=== PATIENT | female | born 1930 | race Caucasian/White ===

== ENCOUNTER 2016-10-10 20:05 | Emergency (ER) | payer MEDICARE ==
[~2016-10-10] VITALS: Ht 157.5 cm; Wt 62.6 kg
[~2016-10-10 20:05] MED LIST: ACET-168 PO; ACET325T38 PO; ASPI-999 PO; CITA10TA7 PO; CLOP75TA28 PO; FLUO40CR8 TP; IBUP200C75 PO; METO-270 PO; PANT40TA3 PO; PSEU120T53 PO; SIMV10TA3 PO; SUCR1TAB PO
--- OUTSIDE RECORDS SUMMARY | 2016-10-10 20:09 | XMS REPORT | Continuity of Care Document ---
Author Author [facility] Organization [facility] Address Unknown Phone Unavailable Care Team Providers Care Adjunct Faculty Name Role Phone TAMIE MICHELLE MD PCP Insurance Providers Payer Name Policy Number Subscriber Name Relationship Wps Medicare [id number] Zenobia Sr 18 Self / Same As Patient Blue Cross [facility] Supp [id number] Zenobia Sr 18 Self / Same As Patient Advance Directives Directive Response Recorded Date/Time Advance Directives Yes 07/06/16 7:25am Health Care Power of Person Investigator Yes 07/06/16 7:25am Organ Donor Yes 07/06/16 7:25am Resuscitation Status DNR-Pt Request 07/06/16 7:25am Chief Complaint and Reason for Visit Chief Complaint Cough/Cold/Flu Symptoms Reason for Visit Upper respiratory infection Problems Active Problems Medical Problem Onset Date Status Nausea Unknown Acute Non-ST elevated myocardial infarction Unknown Acute Pleural effusion Unknown Acute Upper respiratory infection Unknown Acute Medications Current Home Medications Medication Dose Units Route Directions Days/Qty Instructions Start Date Fluorouracil 40 Gm Topical Daily as needed for Rash 09/29/15 Acetaminophen 500 Mg 500 Mg Oral Daily as needed for Brenden 09/29/15 Clopidogrel Bisulfate 75 Mg 75 Mg Oral Daily 90 10/05/15 Simvastatin 10 Mg 10 Mg Oral Bedtime 90 10/05/15 Metoprolol Succinate 25 Mg 25 Mg Oral Daily 90 10/05/15 Aspirin 81 Mg 81 Mg Oral Daily@0900 90 10/05/15 Citalopram Hydrobromide 10 Mg 10 Mg Oral Daily 30 10/05/15 Sucralfate 1 Gm 1 Gm Oral Before Meals And At Bedtime 90 10/05/15 Pantoprazole Sodium 40 Mg 40 Mg Oral Daily@0700 90 10/05/15 Pseudoephedrine Hcl 120 Mg 120 Mg Oral Twice Daily And Prn as needed for Congestion 30 07/06/16 Past Home Medications Medication Directions Ordered Status Acetaminophen 325 Mg Tablet, 325 Mg Oral 09/28/15 Discontinued Ibuprofen 200 Mg Capsule, 200 Mg Oral Daily as needed for Pain 09/28/15 Discontinued Pantoprazole Sodium 40 Mg Tablet.dr, 40 Mg Oral Daily as needed for Heartburn 09/29/15 Discontinued Social History Social History Problem Response Recorded Date/Time Alcohol Use Denies Use 09/29/2015 1:39am Recreational Drug Use No 09/29/2015 1:39am Recent Foreign Travel No 07/06/2016 7:20am Recent Infectious Disease Exposure No 07/06/2016 7:20am Hospitalization with Isolation Denies 07/06/2016 7:20am Smoking Status Never a Smoker 07/06/2016 7:25am Do you dip or chew tobacco? No 10/01/2015 9:33am Recent Hopitalizations No 07/06/2016 7:25am Hospitalization with Isolation Denies 07/06/2016 7:20am Query Response Start Date Stop Date Smoking Status Never a Smoker Hospital Discharge Instructions No hospital discharge instructions. Plan of Care Discharge Date 07/06/16 9:12am Disposition 01 HOME, SELF-CARE Condition at Discharge Stable/Unchanged Instructions/Education Provided Viral Upper Respiratory Infection, Adult (DC) Prescriptions See Medication Section Referrals TAMIE MICHELLE MD - Primary Care Physician Additional Instructions/Education All discharge instructions reviewed with patient and/or family. Voiced understanding. Plenty of rest and liquids. Sudafed for congestion Functional Status No functional status results. Allergies, Adverse Reactions, Alerts Allergen Type Severity Reaction Status Last Updated Penicillins ([id number]) Allergy Unknown Active 09/29/15 Immunizations No immunization records. Vital Signs Acute Vital Signs Vital Response Date/Time Temperature (Fahrenheit) 97.6 degrees F (97.6 - 99.5) 07/06/2016 7:20am Temperature (Calculated Celsius) 36.29420 degrees C (36.4 - 37.5) 07/06/2016 7:20am Temperature Source Temporal 07/06/2016 7:20am Pulse Rate (adult) 68 bpm (60 - 90) 07/06/2016 7:20am Respiratory Rate 18 bpm (12 - 24) 07/06/2016 7:20am O2 Sat by Pulse Oximetry 93 % (88 - 100) 07/06/2016 7:20am Blood Pressure 164/76 mm Hg 07/06/2016 7:20am Blood Pressure Mean 105 mm Hg 07/06/2016 7:20am Pain Numeric Pain Scale 5-Moderate Pain 07/06/2016 7:20am Height (Feet) 5 feet 07/06/2016 7:20am Height (Inches) 3 inches 07/06/2016 7:20am Height (Calculated Centimeters) 160.752138 cm 07/06/2016 7:20am Weight (Pounds) 135 pounds 07/06/2016 7:20am Weight (Calculated Kilograms) 61.726616 kilograms 07/06/2016 7:20am Capillary Refill Capillary Refill Less Than 3 Seconds 07/06/2016 7:20am Height 5 ft 3 in Weight 135 lb Body Mass Index 23.9 kg/m^2 Results Laboratory Results Test Name Result Units Flags Reference Collection Date/Time Result Date/ Time Comments White Blood Count 8.1 10^3/uL 4.3-11.0 07/06/2016 7:47am 07/06/2016 7: 53am Red Blood Count 4.69 10^6/uL 4.35-5.85 07/06/2016 7:47am 07/06/2016 7: 53am Hemoglobin 13.9 G/DL 11.5-16.0 07/06/2016 7:47am 07/06/2016 7:53am Hematocrit 42 % 35-52 07/06/2016 7:47am 07/06/2016 7:53am Mean Corpuscular Volume 90 FL 80-99 07/06/2016 7:47am 07/06/2016 7: 53am Mean Corpuscular Hemoglobin 30 PG 25-34 07/06/2016 7:47am 07/06/2016 7: 53am Mean Corpuscular Hemoglobin Concent 33 G/DL 32-36 07/06/2016 7:47am 05/2016 7:53am Red Cell Distribution Width 13.2 % 10.0-14.5 07/06/2016 7:47am 2015 7:53am Platelet Count 256 10^3/uL 130-400 07/06/2016 7:47am 07/06/2016 7:53am Mean Platelet Volume 12.1 FL H 7.4-10.4 07/06/2016 7:47am 07/06/2016 7: 53am Neutrophils (%) (Auto) 67 % 42-75 07/06/2016 7:47am 07/06/2016 7:53am Lymphocytes (%) (Auto) 21 % 12-44 07/06/2016 7:47am 07/06/2016 7:53am Monocytes (%) (Auto) 8 % 0-12 07/06/2016 7:47am 07/06/2016 7:53am Eosinophils (%) (Auto) 2 % 0-10 07/06/2016 7:47am 07/06/2016 7:53am Basophils (%) (Auto) 1 % 0-10 07/06/2016 7:47am 07/06/2016 7:53am Neutrophils # (Auto) 5.5 X 10^3 1.8-7.8 07/06/2016 7:47am 07/06/2016 7: 53am Lymphocytes # (Auto) 1.7 X 10^3 1.0-4.0 07/06/2016 7:47am 07/06/2016 7: 53am Monocytes # (Auto) 0.6 X 10^3 0.0-1.0 07/06/2016 7:47am 07/06/2016 7: 53am Eosinophils # (Auto) 0.2 10^3/uL 0.0-0.3 07/06/2016 7:47am 07/06/2016 7 :53am Basophils # (Auto) 0.1 10^3/uL 0.0-0.1 07/06/2016 7:47am 07/06/2016 7: 53am Sodium Level 139 MMOL/L 135-145 07/06/2016 7:47am 07/06/2016 8:19am Potassium Level 4.7 MMOL/L 3.6-5.0 07/06/2016 7:47am 07/06/2016 8:19am Chloride Level 103 MMOL/L 98-107 07/06/2016 7:47am 07/06/2016 8:19am Carbon Dioxide Level 24 MMOL/L 21-32 07/06/2016 7:47am 07/06/2016 8: 19am Anion Gap 12 MMOL/L 5-14 07/06/2016 7:47am 07/06/2016 8:19am Blood Urea Nitrogen 22 MG/DL H 7-18 07/06/2016 7:47am 07/06/2016 8:19am Creatinine 1.03 MG/DL 0.60-1.30 07/06/2016 7:47am 07/06/2016 8:19am BUN/Creatinine Ratio 21 07/06/2016 7:47am 07/06/2016 8:19am Estimat Glomerular Filtration Rate 51 07/06/2016 7:47am 07/06/2016 8:19am GFR INTERPRETIVE DATA UNITS FOR ESTIMATED GFR (eGFR): mL/min/1.73 M2 REFERENCE RANGE FOR ESTIMATED GFR (eGFR) eGFR NORMAL eGFR >60 MODERATELY DECREASED eGFR 30-59 SEVERLY DECREASED eGFR 15-29 KIDNEY FAILURE <15 (OR DIALYSIS) Glucose Level 106 MG/DL H 70-105 07/06/2016 7:47am 07/06/2016 8:19am Calcium Level 10.2 MG/DL H 8.5-10.1 07/06/2016 7:47am 07/06/2016 8:19am Total Bilirubin 0.6 MG/DL 0.1-1.0 07/06/2016 7:47am 07/06/2016 8:19am Alkaline Phosphatase 58 U/L 40-136 07/06/2016 7:47am 07/06/2016 8:19am Aspartate Amino Transf (AST/SGOT) 27 U/L 5-34 07/06/2016 7:47am 2015 8:19am Alanine Aminotransferase (ALT/SGPT) 14 U/L 0-55 07/06/2016 7:47am 07/06 8:19am Troponin I < 0.30 NG/ML <0.30 07/06/2016 7:47am 07/06/2016 8:22am Total Protein 7.7 G/DL 6.4-8.2 07/06/2016 7:47am 07/06/2016 8:19am Albumin 4.4 G/DL 3.2-4.5 07/06/2016 7:47am 07/06/2016 8:19am Procedures Procedure Status Date Provider(s) Tracing only of electrocardiogram Active 07/06/16 KAREN PIERSON MD Encounters Encounter Location Arrival/Admit Date Discharge/Depart Date Attending Provider Departed Emergency Room [facility] 07/06/16 7:19am 07/06 9:12am KAREN PIERSON MD Recent Diagnosis
--- NOTE | 2016-10-10 20:18 | ED Chest Pain ---
General Chief Complaint: Chest Pain Stated Complaint: CP Source: patient, RN notes reviewed Exam Limitations: no limitations History of Present Illness Time seen by provider: 20:17 Initial Comments As above and below. Left sided C.P. started around 14:00 while shopping. Continued upon return home. Finally resolved in chest but remains in LUE (10/06) . Apparently had similar arm pain a year ago when she had her [place], so it is making her a little nervous. Nothing makes it better or worse. No associated N /V, SOA, or diaphoresis. Told she better come in and get checked. 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 po LEAD C DEVELOPER: Yes NTG SL LEAD C DEVELOPER: No Associated Symptoms: No diaphoresis, heartburn (???)No nausea/vomiting, No shortness of breath Allergies and Home Medications Allergies Coded Allergies: Penicillins (Unverified Allergy, Unknown, 09/29/15) Home Medications Acetaminophen 500 Mg Tablet 500 MG PO DAILY PRN PRN PRO (Reported) Aspirin 81 Mg Tab.chew #90 81 MG PO DAILY@0900 Prescribed by: YOHAN ORTEGA on 10/05/15 1033 Clopidogrel Bisulfate 75 Mg Tablet #90 75 MG PO DAILY Prescribed by: YOHAN ORTEGA on 10/05/15 1033 Metoprolol Succinate 25 Mg Tab.er.24h #90 25 MG PO DAILY Prescribed by: YOHAN ORTEGA on 10/05/15 1033 Pantoprazole Sodium 40 Mg Tablet.dr #90 40 MG PO DAILY@0700 Prescribed by: YOHAN ORTEGA on 10/05/15 1033 Simvastatin 10 Mg Tablet #90 10 MG PO HS Prescribed by: YOHAN ORTEGA on 10/05/15 1033 Review of Systems Constitutional: see HPINo diaphoresis, No dizziness, No fever Respiratory: Denies Shortness of Air, Denies SOA With Exertion, Denies SOA at Rest Cardiovascular: See HPI Chest Pain Gastrointestinal: Denies Nausea, Denies Vomiting Musculoskeletal: No back pain All Other Systems Reviewed Negative Unless Noted: Yes (Negative excepted noted.) Past Prueula-Rrkuue-Vtnqnb Hx Patient Social History 2nd Hand Smoke Exposure: No Recent Hopitalizations: No Immunizations Up To Date Date of Pneumonia Vaccine: Sep 29, 2013 Date of Influenza Vaccine: May 27, 2015 Seasonal Allergies Seasonal Allergies: No Surgeries HX Surgeries: Yes Surgeries: Adenoidectomy, Ear Surgery, Eye Surgery, Tonsillectomy Respiratory Hx Respiratory Disorders: No Cardiovascular Hx Cardiac Disorders: Yes (stent) Cardiac Disorders: Heart Attack, Hypertension Neurological Hx Neurological Disorders: No Genitourinary Hx Genitourinary Disorders: No Gastrointestinal Hx Gastrointestinal Disorders: No Musculoskeletal Hx Musculoskeletal Disorders: Yes (sciatica) Endocrine Hx Endocrine Disorders: No HEENT HX ENT Disorders: Yes HEENT Disorders: Cataract 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, Hearing Aide Right, Deaf Cancer Hx Cancer: No Psychosocial Hx Psychiatric Problems: Yes (RECENT OF SPOUSE) Behavioral Health Disorders: Depression Family Medical History Significant Family History: Cancer, Hypertension Physical Exam Vital Signs Vital Sign - Last 12Hours 10/10/16 20:05 Temp 98.0 Pulse 79 Resp 20 B/P 183/116 Pulse Ox 96 O2 Delivery Room Air O2 Flow Rate 2 Capillary Refill : Less Than 3 Seconds General Appearance: No Apparent Distress WD/WN HEENT: Normal ENT Inspection Neck: Supple Respiratory: Lungs Clear No Respiratory Distress Cardiovascular: Regular Rate, Rhythm Gastrointestinal: Non Tender Soft Rectal: Deferred Neurologic/Psychiatric: Alert Oriented x3 No Motor/Sensory Deficits Normal Mood/Affect Other ((+) [place]) Skin: Warm/Dry Progress/Results/Core Measures Results/Orders Lab Results Laboratory Tests Test 10/10/16 20:10 Range/Units Alanine Aminotransferase (ALT/SGPT) 11 0-55 U/L Albumin 4.1 3.2-4.5 G/DL Alkaline Phosphatase 63 40-136 U/L Anion Gap 12 5-14 MMOL/L Aspartate Amino Transf (AST/SGOT) 21 5-34 U/L B-Type Natriuretic Peptide 151.7 H <100.0 PG/ML BUN/Creatinine Ratio 27 Basophils # (Auto) 0.1 0.0-0.1 10^3/uL Basophils (%) (Auto) 2 0-10 % Blood Urea Nitrogen 26 H 7-18 MG/DL Calcium Level 9.3 8.5-10.1 MG/DL Carbon Dioxide Level 23 21-32 MMOL/L Chloride Level 102 98-107 MMOL/L Creatinine 0.97 0.60-1.30 MG/DL Eosinophils # (Auto) 0.2 0.0-0.3 10^3/uL Eosinophils (%) (Auto) 3 0-10 % Estimat Glomerular Filtration Rate 54 Glucose Level 108 H 70-105 MG/DL Hematocrit 38 35-52 % Hemoglobin 12.9 11.5-16.0 G/DL Lipase 20 8-78 U/L Lymphocytes # (Auto) 2.4 1.0-4.0 X 10^3 Lymphocytes (%) (Auto) 30 12-44 % Magnesium Level 1.9 1.8-2.4 MG/DL Mean Corpuscular Hemoglobin 30 25-34 PG Mean Corpuscular Hemoglobin Concent 34 32-36 G/DL Mean Corpuscular Volume 89 80-99 FL Mean Platelet Volume 12.3 H 7.4-10.4 FL Monocytes # (Auto) 0.7 0.0-1.0 X 10^3 Monocytes (%) (Auto) 9 0-12 % Neutrophils # (Auto) 4.6 1.8-7.8 X 10^3 Neutrophils (%) (Auto) 57 42-75 % Platelet Count 195 130-400 10^3/uL Potassium Level 4.1 3.6-5.0 MMOL/L Red Blood Count 4.31 L 4.35-5.85 10^6/uL Red Cell Distribution Width 12.8 10.0-14.5 % Sodium Level 137 135-145 MMOL/L Total Bilirubin 0.3 0.1-1.0 MG/DL Total Protein 7.0 6.4-8.2 G/DL Troponin I < 0.30 <0.30 NG/ML White Blood Count 8.1 4.3-11.0 10^3/uL My Orders Orders-POLI GARVIN DO Saline Lock/Iv-Start (10/10/16 20:15) Ekg Tracing (10/10/16 20:15) BNP (10/10/16 20:15) Cbc With Automated Diff (10/10/16 20:15) Comprehensive Metabolic Panel (10/10/16 20:15) Lipase (10/10/16 20:15) Magnesium (10/10/16 20:15) Troponin I (10/10/16 20:15) Chest 1 View, Ap/Pa Only (10/10/16 20:16) Aspirin Chewable Tablet (Baby Aspirin Ch (10/10/16 20:30) Medications Given in ED Current Medications Medications Dose Ordered Sig/Marshall Route Start Time Stop Time Status Last Admin Dose Admin Aspirin 243 mg ONCE ONCE PO 10/10/16 20:30 10/10/16 20:31 DC 10/10/16 20:42 243 MG Vital Signs/I&O Vital Sign - Last 12Hours 10/10/16 10/10/16 10/10/16 10/10/16 20:05 20:05 20:42 21:45 Temp 98.0 98.0 98.0 Pulse 79 62 Resp 20 16 B/P 183/116 Pulse Ox 96 97 O2 Delivery Room Air Nasal Cannula O2 Flow Rate 2 ECG Initial ECG Impression Date: Oct 10, 2016 Initial ECG Impression Time: 20:10 Initial ECG Rate: 74 Initial ECG Rhythm: Normal Sinus Initial ECG Impression: Nonspecific Changes Initial ECG Comparisson: Unchanged (probable YULISSA; LAD; LVH; borderline T abnormalities inferiorly) Diagnostic Imaging Diagonstic Imaging: Xray Plain Films/CT/US/NM/MRI: chest (big heart o/w nothing acute) Departure Impression Impression: Primary Impression: Non-cardiac chest pain Disposition: HOME, SELF-CARE Condition: Stable (ERASED) Departure-Patient Inst. Decision time for Depature: 21:45 Referrals: TAMIE MICHELLE MD (PCP/Family) Primary Care Physician Patient Instructions: Chest Pain That Is Not Caused by the Heart (DC) POLI GARVIN DO Oct 10, 2016 20:18
[2016-10-10 20:22] LABS: BASOPHILS # (AUTO) 0.1 10^3/uL (0.0-0.1); BASOPHILS % (AUTO) 2 % (0-10); EOSINOPHILS # (AUTO) 0.2 10^3/uL (0.0-0.3); EOSINOPHILS % (AUTO) 3 % (0-10); LYMPHOCYTES # (AUTO) 2.4 X 10^3 (1.0-4.0); LYMPHOCYTES % (AUTO) 30 % (12-44); MEAN CORPUSCULAR HEMOGLOBIN 30 PG (25-34); MEAN CORPUSCULAR HGB CONC 34 G/DL (32-36); MEAN CORPUSCULAR VOLUME 89 FL (80-99); MEAN PLATELET VOLUME 12.3 FL (7.4-10.4); MONOCYTES # (AUTO) 0.7 X 10^3 (0.0-1.0); MONOCYTES % (AUTO) 9 % (0-12); NEUTROPHILS # (AUTO) 4.6 X 10^3 (1.8-7.8); NEUTROPHILS % (AUTO) 57 % (42-75); PLATELET COUNT 195 10^3/uL (130-400); RED BLOOD COUNT 4.31 10^6/uL (4.35-5.85); RED CELL DISTRIBUTION WIDTH 12.8 % (10.0-14.5); WHITE BLOOD COUNT 8.1 10^3/uL (4.3-11.0)
[2016-10-10] MEDS ORDERED: ASPIRIN 81 MG CHEW (CHILDREN'S ASA) PO ONE (20:30)
[2016-10-10 20:40] LABS: ALANINE AMINOTRANSFERASE 11 U/L (0-55); ALBUMIN 4.1 G/DL (3.2-4.5); ANION GAP 12 MMOL/L (5-14); ASPARTATE AMINO TRANSFERASE 21 U/L (5-34); BILIRUBIN,TOTAL 0.3 MG/DL (0.1-1.0); BLOOD UREA NITROGEN 26 MG/DL (7-18); BUN/CREATININE RATIO 27; CALCIUM 9.3 MG/DL (8.5-10.1); CARBON DIOXIDE 23 MMOL/L (21-32); CHLORIDE 102 MMOL/L (98-107); CREATININE SERUM 0.97 MG/DL (0.60-1.30); GFR ESTIMATED 54; GLUCOSE 108 MG/DL (70-105); LIPASE 20 U/L (8-78); MAGNESIUM 1.9 MG/DL (1.8-2.4); POTASSIUM 4.1 MMOL/L (3.6-5.0); SODIUM 137 MMOL/L (135-145)
[2016-10-10 20:45] LABS: TROPONIN I < 0.30 NG/ML (<0.30)
--- NOTE | 2016-10-10 20:58 | Diagnostic Imaging Report ---
INDICATION: Chest pain COMPARISON: 07/06/16 FINDINGS: Single view of the chest demonstrates cardiac enlargement without pulmonary edema. There is some basilar atelectasis on the left. There is no pneumothorax, effusion or focal infiltrate. IMPRESSION: 1. Cardiac enlargement without pulmonary edema 2. Minimal left basilar atelectasis. Dictated by: Dictated on workstation # [id number]
[2016-10-10 21:45] VITALS: BP 153/64
== END 2016-10-10 21:45 | disposition home or self-care (01) ==
LOC: EDUNIT# 20:05 → ER 20:05
DX: R07.89 Other chest pain (principal); I51.7 Cardiomegaly; I10 Essential (primary) hypertension; I25.2 Old myocardial infarction; Z79.82 Long term (current) use of aspirin; Z79.899 Other long term (current) drug therapy; Z79.02 Long term (current) use of antithrombotics/antiplatelets
CPT/HCPCS: 36415; 71010; 80053; 83690; 83735; 83880; 84484; 85025; 93005

== ENCOUNTER → 2016-10-17 | Outpatient (CLI) | payer MEDICARE ==
[~2016-10-17] VITALS: Ht 157.5 cm; Wt 62.6 kg
[~2016-10-17] MED LIST changes: +CATHETER FLUSH 10 ML SYR IV PRN; +REGADENOSON 0.4 MG/5 ML SYR (LEXISCAN) IV ONE
[2016-10-17 13:04] VITALS: BP 183/78
[2016-10-17 13:11] VITALS: BP 160/74
[2016-10-17 13:13] VITALS: BP 163/72
--- OUTSIDE RECORDS SUMMARY | 2016-10-17 13:33 | XMS REPORT | Continuity of Care Document ---
Author Author [facility] Organization [facility] Address Unknown Phone Unavailable Care Team Providers Care Finishing Range Operator Name Role Phone TAMIE MICHELLE MD PCP Insurance Providers Payer Name Policy Number Subscriber Name Relationship Wps Medicare [id number] Zenobia Sr 18 Self / Same As Patient Blue Cross [facility] Supp [id number] Zenobia Sr 18 Self / Same As Patient Advance Directives Directive Response Recorded Date/Time Advance Directives Yes 07/06/16 7:25am Health Care Power of Knocker Off Yes 07/06/16 7:25am Organ Donor Yes 07/06/16 [...] Type Severity Reaction Status Last Updated Penicillins ([id number]) Allergy Unknown Active 09/29/15 Immunizations No immunization records. Vital Signs Acute Vital Signs Vital Response Date/Time Temperature (Fahrenheit) 97.6 degrees F (97.6 - 99.5) 07/06/2016 7:20am Temperature (Calculated Celsius) 36.74382 degrees C (36.4 - 37.5) 07/06/2016 7:20am [...] 3 inches 07/06/2016 7:20am Height (Calculated Centimeters) 160.363793 cm 07/06/2016 7:20am Weight (Pounds) 135 pounds 07/06/2016 7:20am Weight (Calculated Kilograms) 61.569588 kilograms 07/06/2016 7:20am Capillary Refill Capillary Refill [...] Date Attending Provider Departed Emergency Room [facility] 07/06/16 7:19am 07/06 9:12am KAREN PIERSON MD Recent Diagnosis
--- NOTE | 2016-10-18 07:46 | STRESS TEST ---
PROCEDURE PHYSICIAN: JIMMIE PITT DATE OF PROCEDURE: 10/17/2016 RESTING AND POST REGADENOSON TECHNETIUM 99M TETROFOSMIN SPECT CT IMAGING: ORDERING PHYSICIAN: Dr. Pitt. PRIMARY PHYSICIAN: Dr. Castorena. CLINICAL DIAGNOSES: 1. Chest discomfort. 2. Coronary artery disease. Baseline images were carried out after injection of 10.46 mCi of technetium 99m tetrofosmin this was followed by 0.4 mg of regadenoson and 30.2 mCi of technetium 99m tetrofosmin for stress imaging. The electrocardiogram showed sinus rhythm at baseline. Isolated premature ventricular contractions were seen during the study. The electrocardiogram did not change significantly with regadenoson infusion. She tolerated the procedure well. Review of images at rest and following stress, does not indicate any distinct perfusion defects consistent with significant myocardial ischemia or infarction. Gated images show normal global left ventricular systolic function with normal regional wall motion. Left ventricular ejection fraction is calculated to be 75%. Left ventricular end-diastolic volume is 47 mL. TID is absent (1.19). CONCLUSIONS: 1. No evidence of significant myocardial ischemia or infarction on this study. 2. Normal regional wall motion. 3. Normal global left ventricular systolic function with a calculated ejection fraction of 75%. Job ID: [id number] Dictated Date: 10/17/2016 18:20:29 Necktie Turner Date: 10/18/2016 07:43:19 / kate
== END ==
LOC: CARD 11:23
PROVIDERS: ATTEND Internal Medicine Cardiovascular Disease
DX: I25.10 Atherosclerotic heart disease of native coronary artery without angina pectoris (principal); F41.1 Generalized anxiety disorder; R07.89 Other chest pain
CPT/HCPCS: 78452; 93017

== ENCOUNTER → 2017-03-20 | Outpatient (CLI) | payer MEDICARE ==
[~2017-03-20] MED LIST changes: +ALPR0.5T7 PO; +ASPI-479 PO; +HYDR-3816 PO; +LEVO1CAP11 PO; -METO-270 PO; +METO-387 PO; +MULT-166 PO; -REGADENOSON 0.4 MG/5 ML SYR (LEXISCAN) IV ONE
--- NOTE | 2017-03-20 16:10 | Diagnostic Imaging Report ---
3 phase bone scan. Technique: After the intravenous administration of 24.9 mCi of Technetium 99m MDP, three-phase bone scan was obtained over the knees with flow, blood pool and delayed phase images performed. Indication: Bilateral TKR in 1999. Left Knee pain since 12/2016. Findings: There is symmetric flow seen around the knees. The soft tissue uptake around the knees is symmetric. There is mild to moderate increased activity on the delayed phase imaging involving the medial femoral condyle in the left knee. Photopenia centrally from the knee prosthesis bilaterally is seen. IMPRESSION: There is mild to moderate increased uptake only seen in the delayed phase imaging at the medial aspect of the remaining portion of the medial femoral condyle. Correlate with radiographs. No significant hyperemia seen to suggest an inflammatory or infectious etiology. Correlate with knee radiographs and consider possibility of injury or mild loosening. Dictated by: Dictated on workstation # [id number]
== END ==
LOC: CARD 10:56
PROVIDERS: ATTEND Orthopaedic Surgery
DX: M25.562 Pain in left knee (principal)
CPT/HCPCS: 78315

== ENCOUNTER → 2017-05-15 | Outpatient (CLI) | payer MEDICARE ==
[~2017-05-15] MED LIST changes: -ALPR0.5T7 PO; -ASPI-479 PO; -CATHETER FLUSH 10 ML SYR IV PRN; -HYDR-3816 PO; +IOHEXOL 350 MG/ML 100 ML (OMNIPAQUE 350) VIAL IV ONE; -LEVO1CAP11 PO; +METO-270 PO; -METO-387 PO; -MULT-166 PO; +NS 100 ML (IVPB) BAG IV ONE
[2017-05-15 09:14] LABS: ALBUMIN 3.9 GM/DL (3.2-4.5); BILIRUBIN,TOTAL 0.8 MG/DL (0.1-1.0); CALCIUM 9.4 MG/DL (8.5-10.1); CREATININE SERUM 1.08 MG/DL (0.60-1.30); POTASSIUM 4.2 MMOL/L (3.6-5.0); TOTAL PROTEIN 6.6 GM/DL (6.4-8.2)
--- NOTE | 2017-05-15 10:56 | Diagnostic Imaging Report ---
PROCEDURE: CT abdomen and pelvis with and without contrast. TECHNIQUE: Precontrast acquisitions were acquired through the abdomen and pelvis. Multiple contiguous axial images were obtained through the abdomen and pelvis after the administration of intravenous contrast. INDICATION: Abdominal and hip pain, right lower quadrant pain. FINDINGS: The lung bases demonstrate minimal atelectasis or scarring. The liver, spleen, pancreas, and adrenal glands appear unremarkable. There is a calcified gallstone with gallbladder distention seen. There is no pericholecystic fluid or wall thickening evident. The unenhanced phase demonstrates no kidney stones. No bladder or ureteric stone is seen. There is diverticulosis. No diverticulitis. The appendix is normal. There is no bowel obstruction. A minimal amount of free fluid in the right side of the pelvis is seen of uncertain significance. There is an adnexal simple appearing cystic lesion measuring 3.6 x 2.3 cm. The abdominal aorta demonstrates atherosclerotic plaque with no significant stenosis. A tiny fat-containing umbilical hernia is seen. The osseous structures demonstrate minimal scoliotic curvature and degenerative changes around the thoracolumbar junction and lower lumbar spine. There is degenerative change at the symphysis pubis. IMPRESSION: 1. A minimal amount of free fluid in the right side of the pelvis is seen. Consider further evaluation with a pelvic ultrasound. 2. Diverticulosis. No diverticulitis. 3. There is a calcified gallstone and distended gallbladder seen without inflammatory changes noted to suggest cholecystitis. Correlate clinically and with gallbladder ultrasound if needed. Dictated by: Dictated on workstation # [id number]
== END ==
LOC: RAD 08:36
PROVIDERS: ATTEND Family Medicine
DX: K80.20 Calculus of gallbladder without cholecystitis without obstruction (principal); K82.8 Other specified diseases of gallbladder; M25.551 Pain in right hip; M25.552 Pain in left hip
CPT/HCPCS: 36415; 74178; 80053

== ENCOUNTER 2017-05-31 11:27 | Outpatient (CLI) | payer MEDICARE ==
[~2017-05-31] VITALS: Ht 157.5 cm; Wt 61.2 kg
[~2017-05-31 11:27] MED LIST changes: -IOHEXOL 350 MG/ML 100 ML (OMNIPAQUE 350) VIAL IV ONE; -NS 100 ML (IVPB) BAG IV ONE
[2017-05-31 11:53] VITALS: BP 139/76
[2017-05-31] MEDS ORDERED: CLOP75TA28 PO (12:00)
[2017-05-31] MEDS ORDERED: PANT40TA3 PO (12:00)
[2017-05-31] MEDS ORDERED: LEVO1CAP11 PO (12:00)
[2017-05-31] MEDS ORDERED: ALPR0.5T7 PO (12:00)
[2017-05-31] MEDS ORDERED: METO-270 PO (12:00)
[2017-05-31] MEDS ORDERED: SIMV10TA3 PO (12:00)
[2017-05-31] MEDS ORDERED: MULT-166 PO (12:00)
[2017-05-31] MEDS ORDERED: ASPI-479 PO (12:00)
[2017-05-31 12:05] LABS: BASOPHILS # (AUTO) 0.1 10^3/uL (0.0-0.1); BASOPHILS % (AUTO) 2 % (0-10); EOSINOPHILS # (AUTO) 0.4 10^3/uL (0.0-0.3); EOSINOPHILS % (AUTO) 5 % (0-10); LYMPHOCYTES # (AUTO) 1.6 X 10^3 (1.0-4.0); LYMPHOCYTES % (AUTO) 21 % (12-44); MEAN CORPUSCULAR HEMOGLOBIN 30 PG (25-34); MEAN CORPUSCULAR HGB CONC 33 G/DL (32-36); MEAN CORPUSCULAR VOLUME 91 FL (80-99); MEAN PLATELET VOLUME 12.2 FL (7.4-10.4); MONOCYTES # (AUTO) 0.7 X 10^3 (0.0-1.0); MONOCYTES % (AUTO) 10 % (0-12); NEUTROPHILS # (AUTO) 4.5 X 10^3 (1.8-7.8); NEUTROPHILS % (AUTO) 61 % (42-75); PLATELET COUNT 243 10^3/uL (130-400); RED BLOOD COUNT 4.19 10^6/uL (4.35-5.85); RED CELL DISTRIBUTION WIDTH 13.2 % (10.0-14.5); WHITE BLOOD COUNT 7.3 10^3/uL (4.3-11.0)
== END 2017-05-31 11:55 | disposition home or self-care (01) ==
LOC: PREOP 11:27
PROVIDERS: ATTEND Surgery
DX: Z01.812 Encounter for preprocedural laboratory examination (principal); K80.20 Calculus of gallbladder without cholecystitis without obstruction; K42.9 Umbilical hernia without obstruction or gangrene
CPT/HCPCS: 36415; 85025; 87081

== ENCOUNTER 2017-06-07 10:16 | Day surgery (SDC) | payer MEDICARE ==
[~2017-06-07] VITALS: Ht 157.5 cm; Wt 61.2 kg
[~2017-06-07 10:16] MED LIST changes: +ALPR0.5T7 PO; +ASPI-479 PO; +LEVO1CAP11 PO; +MULT-166 PO
--- NOTE | 2017-06-07 10:59 | Progress Note-Pre Operative ---
Pre-Operative Progress Note H&P Reviewed The H&P was reviewed, patient examined and no changes noted. Date Seen by Provider: Jun 07, 2017 Time Seen by Provider: 10:58 Date H&P Reviewed: Jun 07, 2017 Time H&P Reviewed: 10:58 Pre-Operative Diagnosis: chronic calculous cholecystitis, symptomatic reducible umbilical hernia MAMI CRUZ MD Jun 07, 2017 10:59 am
[2017-06-07] MEDS ORDERED: ONDANSETRON 4 MG/2 ML (SDV) Z0FRAN IVP PRN ×2 (11:00→15:15)
[2017-06-07] MEDS ORDERED: morphine INJ 10 MG/ML 1ML (SYR OR VIAL) IVP PRN (11:00)
[2017-06-07] MEDS ORDERED: HYDROcodone/APAP 5 MG/325 MG (LORTAB) TAB PO ONE (11:00)
[2017-06-07] MEDS ORDERED: ACETAMINOPHEN 325 MG TABLET/CAPLET (TYLENOL) PO PRN (11:00)
[2017-06-07] MEDS ORDERED: SEVOFLURANE (ULTANE) 15 ML INHAL SOLN ONE ×6 (11:05→14:42)
[2017-06-07] MEDS ORDERED: ONDANSETRON 4 MG/2 ML (SDV) Z0FRAN ONE ×2 (11:05→14:41)
[2017-06-07] MEDS ORDERED: ROCURONIUM 50 MG/5 ML (ZEMURON) VIAL IV ONE (11:05)
[2017-06-07] MEDS ORDERED: LIDOCAINE PF 2% 5 ML (XYLOCAINE) VIAL ONE (11:05)
[2017-06-07] MEDS ORDERED: fentaNYL INJECTION 100 MCG/2 ML AMP ONE (11:05)
[2017-06-07] MEDS ORDERED: DEXAMETHASONE 10 MG/ML (DECADRON) 1 ML VIAL ONE (11:05)
[2017-06-07] MEDS ORDERED: MIDAZOLAM 2 MG/2 ML (VERSED) VIAL ONE (11:05)
[2017-06-07] MEDS ORDERED: proPOfol 200 MG/20 ML (DIPRIVAN) VIAL IV ONE (11:05)
[2017-06-07] MEDS ORDERED: MUPIROCIN 2% OINT 22 GM (BACTROBAN) TUBE ONE (11:17)
[2017-06-07] MEDS ORDERED: ceFAZolin 1,000 MG (ANCEF) VIAL ONE (11:18)
[2017-06-07] MEDS ORDERED: NS (IVPB) 50 ML ONE (11:18)
[2017-06-07] MEDS ORDERED: FAMOTIDINE 20MG/2ML IV (PEPCID) ONE (11:18)
[2017-06-07] MEDS: LACTATED RINGERS 1,000 ML IV PRN ×2 (11:35→14:34)
[2017-06-07] MEDS ORDERED: FAMOTIDINE 20MG/2ML IV (PEPCID) IV ONE (11:45)
[2017-06-07] MEDS ORDERED: BUP/EPI 0.5% 1:200,000 (MARCAINE) 10ML VIAL IJ ONE (12:06)
[2017-06-07] MEDS ORDERED: morphine INJ 10 MG/ML 1ML (SYR OR VIAL) ONE ×2 (13:54→14:41)
[2017-06-07] MEDS ORDERED: NEOSTIGMINE (BLOXIVERZ ) 1 MG/1ML 10 ML VIAL ONE (14:28)
[2017-06-07] MEDS ORDERED: GLYCOPYRROLATE 0.2 MG/ML (ROBINUL) 2 ML VIAL ONE (14:28)
--- NOTE | 2017-06-07 14:56 | Progress Note-Post Operative ---
Post-Operative Progess Note Surgeon (s)/Apple Peeler Operator (s) Surgeon MAMI CRUZ MD Apple Peeler Operator: rowena marks GEOTHERMAL HEAT PUMP MACHINIST Pre-Operative Diagnosis chronic calculous cholecystitis, symptomatic reducible umbilical hernia Post-Operative Diagnosis same Procedure & Operative Findings Date of Procedure 06/07/17 Procedure Performed/Findings laparoscopic cholecystectomy, open primary umbilical repair Anesthesia Type GET Estimated Blood Loss Estimated blood loss (mL): minimal Specimens/Packing Specimens Removed gallbladder MAMI CRUZ MD Jun 07, 2017 2:56 pm
[2017-06-07] MEDS ORDERED: HYDR-3816 PO (14:59)
--- NOTE | 2017-06-07 15:02 | Discharge Inst-Surgical ---
D/C Lap Instructions-NANCY New, Converted, or Re-Newed RX: RX on Chart Follow Up Appt in 2 weeks Activity as tolerated No driving for 24 hours No [address] while on pain medications Incentive Spirometry use every 2 hours while awake Regular Diet Symptoms to Report: Fever over 101 degree F, Nausea/Vomiting Infection Signs and Symptoms to report: Increased redness, Foul odor of wound, Increased drainage Bathing instructions: May shower Operative Area Clean/Dry; Keep incision clean/dry If any problems/questions: Contact your physician or go to Emergency Room MAMI CRUZ MD Jun 07, 2017 3:02 pm
[2017-06-07] MEDS: fentaNYL INJECTION 100 MCG/2 ML AMP IVP PRN ×3 (15:25→15:35)
[2017-06-07 16:10] VITALS: BP 130/55
[2017-06-07 16:40] VITALS: BP 157/70
[2017-06-07 17:10] VITALS: BP 153/67
[2017-06-07 17:40] VITALS: BP 153/67
[2017-06-07] MEDS ORDERED: MUPIROCIN 2% OINT 22 GM (BACTROBAN) TUBE NSEACH SCH ×2 (21:00)
--- NOTE | 2017-06-08 06:36 | OPERATIVE REPORT ---
DATE OF SERVICE: 06/07/2017 ATTENDING PHYSICIAN: Dr. Castorena. PREOPERATIVE DIAGNOSES: Chronic calculous cholecystitis. Small umbilical hernia. POSTOPERATIVE DIAGNOSES: Chronic calculous cholecystitis. Small umbilical hernia. PROCEDURE: Laparoscopic cholecystectomy, open primary umbilical hernia repair. SURGEON: Dr. Cruz. 3RD GRADE READING TEACHER: Genaro Novoa APRN ANESTHESIA: General endotracheal. ESTIMATED BLOOD LOSS: Minimal. FINDINGS: Chronic gallbladder wall dilatation and inflammation with 1 solitary stone. Small umbilical hernia, 1 cm in size. DISPOSITION: The patient tolerated the procedure well. INDICATIONS: The patient is an 86-year-old female with pain in the right upper abdominal quadrant for the past year on an intermittent basis. She reports that since February, she has had more frequent as well as more severe symptoms. She states that the pain will be sharp in the right upper abdominal quadrant and this would be associated with nausea; however, no vomiting. A CT scan was performed, which did show a gallstone as well as a small umbilical hernia. She also reports that spicy foods tend to make her symptoms worse. DESCRIPTION OF PROCEDURE: The patient was brought to the operating room, laid supine on the table. After adequate IV pain and sedative medications and general endotracheal intubation, the abdomen was prepped and draped in a standard surgical fashion. A 0.5% Marcaine with epinephrine was then used to anesthetize the overlying skin in the left upper abdominal quadrant. A small transverse skin incision made using a 15 blade. A 0 silk suture was applied to the medial aspect of the incision for retraction and a Veress needle inserted with a low opening pressure of 0 mmHg and the abdomen was insufflated to 15 mmHg pressure. The Veress needle removed and a 5 mm Xcel trocar placed followed by a 5 mm 45-degree angle laparoscope visualizing the peritoneal cavity. A 4-quadrant abdominal exploration was performed. There was a very small umbilical hernia, approximately 1 cm in size. The gallbladder was slightly distended with some omental adhesions to the gallbladder. We then proceeded to place a 10 mm port through the umbilical hernia site after the skin and peritoneum were anesthetized using 0.5% Marcaine and a transverse skin incision was made using a 15 blade. In a similar manner, a right upper abdominal quadrant 5 mm port was placed. The patient was placed in a reverse Trendelenburg position as plane right side up, left side down. The fundus of the gallbladder was retracted anteriorly and superiorly. The omental adhesions were then taken down using electrocautery on the hook instrument. The hepatoduodenal ligament was then opened using electrocautery as well as blunt dissection. The entire critical view of safety was identified including the triangle of Calot as well as the cystic duct and artery going into the gallbladder as well as the liver behind the proximal gallbladder. A timeout was then taken and the cystic duct and artery were then clipped proximally and distally and cut with EndoShears. The gallbladder was then dissected off the liver bed using electrocautery and the hook instrument with visualization of good hemostasis as well as no leaking ducts of Luschka. The gallbladder was removed through the 10 mm port site using an EndoCatch bag. We then decided to primarily close the small umbilical defect using a running 0 Prolene suture approximating the fascia without any tension. Good hemostasis was observed. The abdomen was desufflated and the remaining ports removed. All skin incisions were closed using 4-0 Monocryl running subcuticular sutures. Wounds were then cleaned and covered with Dermabond. The patient tolerated the procedure well. We will start IV and oral pain medication as well as a clear liquid diet. Once she is tolerating clears, she has good pain control with oral pain medication and is ambulating well, we will discharge her home. Job ID: [id number] DocumentID: [id number] Dictated Date: 06/07/2017 15:10:43 Equipment Detailer Date: 06/08/2017 01:41:10 Dictated By: MAMI CRUZ MD MTDD
== END 2017-06-07 17:40 | disposition home or self-care (01) ==
LOC: SDC 10:16
PROVIDERS: ATTEND Surgery
DX: K80.10 Calculus of gallbladder with chronic cholecystitis without obstruction (principal); K42.9 Umbilical hernia without obstruction or gangrene; I25.10 Atherosclerotic heart disease of native coronary artery without angina pectoris; I10 Essential (primary) hypertension; E78.00 Pure hypercholesterolemia, unspecified; K21.9 Gastro-esophageal reflux disease without esophagitis; M19.91 Primary osteoarthritis, unspecified site; I25.2 Old myocardial infarction; Z79.02 Long term (current) use of antithrombotics/antiplatelets; Z79.82 Long term (current) use of aspirin; Z79.899 Other long term (current) drug therapy; Z95.5 Presence of coronary angioplasty implant and graft
CPT/HCPCS: 94664

== ENCOUNTER 2017-12-03 17:00 | Outpatient (RCR) | payer MEDICARE, OTHER ==
[~2017-12-03 17:00] MED LIST changes: +HYDR-34 PO; -METO-270 PO; +METO-387 PO; +PSEU120T17 PO; -PSEU120T53 PO
== END 2017-12-30 | disposition home or self-care (01) ==
LOC: CR3 17:00
PROVIDERS: ATTEND Internal Medicine Cardiovascular Disease
DX: Z29.8 Encounter for other specified prophylactic measures (principal)

== ENCOUNTER 2017-12-05 11:03 | Emergency (ER) | payer MEDICARE ==
[~2017-12-05] VITALS: Ht 157.5 cm; Wt 64.9 kg
[~2017-12-05 11:03] MED LIST changes: -PSEU120T17 PO; +PSEU120T53 PO
[2017-12-05 11:32] LABS: BASOPHILS # (AUTO) 0.1 10^3/uL (0.0-0.1); BASOPHILS % (AUTO) 2 % (0-10); EOSINOPHILS # (AUTO) 0.2 10^3/uL (0.0-0.3); EOSINOPHILS % (AUTO) 3 % (0-10); HEMATOCRIT 37 % (35-52); HEMOGLOBIN 12.4 G/DL (11.5-16.0); LYMPHOCYTES # (AUTO) 1.4 X 10^3 (1.0-4.0); LYMPHOCYTES % (AUTO) 21 % (12-44); MEAN CORPUSCULAR HEMOGLOBIN 30 PG (25-34); MEAN CORPUSCULAR HGB CONC 34 G/DL (32-36); MEAN CORPUSCULAR VOLUME 91 FL (80-99); MEAN PLATELET VOLUME 12.3 FL (7.4-10.4); MONOCYTES # (AUTO) 0.6 X 10^3 (0.0-1.0); MONOCYTES % (AUTO) 9 % (0-12); NEUTROPHILS # (AUTO) 4.5 X 10^3 (1.8-7.8); NEUTROPHILS % (AUTO) 66 % (42-75); PLATELET COUNT 221 10^3/uL (130-400); RED BLOOD COUNT 4.08 10^6/uL (4.35-5.85); RED CELL DISTRIBUTION WIDTH 13.2 % (10.0-14.5); WHITE BLOOD COUNT 6.8 10^3/uL (4.3-11.0)
--- NOTE | 2017-12-05 11:50 | Diagnostic Imaging Report ---
INDICATION: Arm pain. TIME OF EXAM: 11:36 a.m. Correlation is made with prior study from 10/10/2016. The heart is enlarged but stable. The lungs are clear. No infiltrate or failure is detected. No effusion or pneumothorax is seen. IMPRESSION: No acute cardiopulmonary process is detected. Dictated by: Dictated on workstation # [id number]
[2017-12-05 11:57] LABS: ALANINE AMINOTRANSFERASE 12 U/L (0-55); ALBUMIN 4.1 GM/DL (3.2-4.5); ALKALINE PHOSPHATASE 48 U/L (40-136); BILIRUBIN,TOTAL 0.7 MG/DL (0.1-1.0); BUN/CREATININE RATIO 18; CALCIUM 9.7 MG/DL (8.5-10.1); CARBON DIOXIDE 23 MMOL/L (21-32); CHLORIDE 105 MMOL/L (98-107); GFR ESTIMATED 42; GLUCOSE 87 MG/DL (70-105); POTASSIUM 4.4 MMOL/L (3.6-5.0); SODIUM 141 MMOL/L (135-145); TOTAL PROTEIN 6.9 GM/DL (6.4-8.2)
--- NOTE | 2017-12-05 12:11 | ED Upper Extremity ---
General Chief Complaint: Upper Extremity Stated Complaint: PAINS IN ARMS Source: patient, family (KAREN PIERSON MD) History of Present Illness Date Seen by Provider: Dec 05, 2017 Time Seen by Provider: 12:07 Initial Comments The patient is an 87-year-old white female known to me. Her daughter Ester it was a long time physical therapist at this facility. Ester reports that for about the last month or month and a half the patient has been having bilateral shoulder pain. This may have something to do with using the arm bicycle in cardiac rehabilitation. The symptoms seem to wax and wane. She has also had a cardiac care disease with intervention. This morning she was complaining rather bitterly. Onset: this morning Pain/Injury Location: bilateral shoulder Method of Injury: sports injury (KAREN PIERSON MD) Allergies and Home Medications Allergies Coded Allergies: Penicillins (Unverified Allergy, Unknown, 09/29/15) Home Medications Alprazolam 0.5 Mg Tablet, 0.5 MG PO HS, (Reported) Aspirin 81 Mg Tablet.dr, 81 MG PO DAILY, (Reported) Clopidogrel Bisulfate 75 Mg Tablet, 75 MG PO DAILY, (Reported) Hydrocodone Bit/Acetaminophen 1 Each Tablet, 1-2 EACH PO Q4H Prescribed by: MAMI CRUZ on 06/07/17 1459 Levomefolate/B6/B12/Algal Oil 1 Each Capsule, 1 EACH PO DAILY, (Reported) Metoprolol Succinate 25 Mg Tab.er.24h, 25 MG PO DAILY, (Reported) Multivitamin with Minerals 1 Each Tablet, 1 EACH PO DAILY, (Reported) Pantoprazole Sodium 40 Mg Tablet.dr, 40 MG PO DAILY, (Reported) Simvastatin 10 Mg Tablet, 10 MG PO HS, (Reported) Patient Home Medication List Home Medication List Reviewed: Yes (ANNIKA GRIMM MD) Constitutional: see HPI EENTM: hearing loss Respiratory: no symptoms reported Cardiovascular: no symptoms reported, chest pain Gastrointestinal: no symptoms reported Genitourinary: no symptoms reported Musculoskeletal: no symptoms reported Skin: no symptoms reported Psychiatric/Neurological: No Symptoms Reported (KAREN PIERSON MD) Past Hfewglj-Uglnag-Qopovd Hx Patient Social History Alcohol Use: Denies Use Recreational Drug Use: No Smoking Status: Never a Smoker 2nd Hand Smoke Exposure: No Recent Foreign Travel: No Contact w/Someone Who Travel: No Recent Hopitalizations: No Physical Abuse: No Sexual Abuse: No Mistreated: No Fear: No (KAREN PIERSON MD) Immunizations Up To Date Date of Pneumonia Vaccine: Sep 29, 2013 Date of Influenza Vaccine: May 27, 2017 (KAREN PIERSON MD) Seasonal Allergies Seasonal Allergies: No (KAREN PIERSON MD) Past Medical History Surgeries: Yes (STENTS X 2 (09/28/15), bilat TKR) Adenoidectomy, Coronary Stent, Ear Surgery, Eye Surgery, Tonsillectomy Respiratory: No Cardiac: Yes (2 STENTS) Heart Attack, Hypertension Neurological: No Gastrointestinal: Yes Abdominal Hernia, Ulcer, Gall Bladder Disease Musculoskeletal: Yes Arthritis Endocrine: No Cataract 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, Hearing Aide Right, Deaf Cancer: No Psychosocial: Yes Depression Nursing Suicide Risk Score: 0 Integumentary: No Blood Disorders: No (KAREN PIERSON MD) Family Medical History Cancer, Hypertension (KAREN PIERSON MD) Physical Exam Vital Signs Vital Signs - First Documented 12/05/17 12:02 Temp 98.1 Pulse 64 Resp 14 B/P (MAP) 170/83 (112) Pulse Ox 97 (ANNIKA GRIMM MD) Vital Signs Capillary Refill : (KAREN PIERSON MD) General Appearance: mild distress Neck: non-tender, normal inspection Cardiovascular: normal peripheral pulses, regular rate, rhythm, no edema, no gallop, no JVD, no murmur Respiratory: chest non-tender, lungs clear, normal breath sounds, no respiratory distress, no accessory muscle use Gastrointestinal: normal bowel sounds Elbow/Forearm: normal inspection, non-tender, no evidence of injury, normal ROM Wrist: Yes normal inspection, Yes non-tender, Yes no evidence of injury, Yes normal ROM Hand: normal inspection Neurologic/Psychiatric: 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 The left shoulder shows pain and rigidity at 90 of abduction. There is some crepitus to rotational movements. The right shoulder shows pain to abduction and restriction of movement at about 100. There is pain to range of motion but relatively speaking greater movement on the right. (KAREN PIERSON MD) Progress/Results/Core Measures Lab Results Laboratory Tests Test 12/05/17 11:22 Range/Units White Blood Count 6.8 4.3-11.0 10^3/uL Red Blood Count 4.08 L 4.35-5.85 10^6/uL Hemoglobin 12.4 11.5-16.0 G/DL Hematocrit 37 35-52 % Mean Corpuscular Volume 91 80-99 FL Mean Corpuscular Hemoglobin 30 25-34 PG Mean Corpuscular Hemoglobin Concent 34 32-36 G/DL Red Cell Distribution Width 13.2 10.0-14.5 % Platelet Count 221 130-400 10^3/uL Mean Platelet Volume 12.3 H 7.4-10.4 FL Neutrophils (%) (Auto) 66 42-75 % Lymphocytes (%) (Auto) 21 12-44 % Monocytes (%) (Auto) 9 0-12 % Eosinophils (%) (Auto) 3 0-10 % Basophils (%) (Auto) 2 0-10 % Neutrophils # (Auto) 4.5 1.8-7.8 X 10^3 Lymphocytes # (Auto) 1.4 1.0-4.0 X 10^3 Monocytes # (Auto) 0.6 0.0-1.0 X 10^3 Eosinophils # (Auto) 0.2 0.0-0.3 10^3/uL Basophils # (Auto) 0.1 0.0-0.1 10^3/uL Sodium Level 141 135-145 MMOL/L Potassium Level 4.4 3.6-5.0 MMOL/L Chloride Level 105 98-107 MMOL/L Carbon Dioxide Level 23 21-32 MMOL/L Anion Gap 13 5-14 MMOL/L Blood Urea Nitrogen 22 H 7-18 MG/DL Creatinine 1.20 0.60-1.30 MG/DL Estimat Glomerular Filtration Rate 42 BUN/Creatinine Ratio 18 Glucose Level 87 70-105 MG/DL Calcium Level 9.7 8.5-10.1 MG/DL Total Bilirubin 0.7 0.1-1.0 MG/DL Aspartate Amino Transf (AST/SGOT) 20 5-34 U/L Alanine Aminotransferase (ALT/SGPT) 12 0-55 U/L Alkaline Phosphatase 48 40-136 U/L Troponin I < 0.30 <0.30 NG/ML Total Protein 6.9 6.4-8.2 GM/DL Albumin 4.1 3.2-4.5 GM/DL (ANNIKA GRIMM MD) My Orders Orders - ANNIKA GRIMM MD Acetaminophen Tablet (Tylenol Tablet) (12/05/17 12:22) Metoprolol Succinate (Xl) Tab (Toprol Xl (12/05/17 12:30) (ANNIKA GRIMM MD) Medications Given in ED Current Medications Medications Dose Ordered Sig/Marshall Route Start Time Stop Time Status Last Admin Dose Admin Metoprolol Succinate 25 mg ONCE ONCE PO 12/05/17 12:30 12/05/17 12:31 DC 12/05/17 12:40 25 MG (ANNIKA GRIMM MD) Vital Signs/I&O 12/05/17 12:02 Temp 98.1 Pulse 64 Resp 14 B/P (MAP) 170/83 (112) Pulse Ox 97 (ANNIKA GRIMM MD) Progress Note : Progress Note 1205: Assumed care from Dr. PIERSON pending labs. 1230: Toprol-XL 25 mg by mouth and acetaminophen 1 g by mouth ordered. Monitor patient. 1310: No acute findings on lab or x-ray. Patient's feeling a little better. This is likely related to muscle strain as pain is been going on since last night and is similar to previous pain earlier a month ago with muscle strain from exercise. Patient and daughter are comfortable with discharge. Discharged home with return precautions. Patient family verbalize understanding instructions and agreement with plan. (ANNIKA GRIMM MD) Diagonstic Imaging: Xray Plain Films/CT/US/NM/MRI: chest Comments NAME: ZENOBIA SR [facility] REC#: [id number] PT STATUS: REG ER : 1930 PHYSICIAN: KAREN PIERSON MD ADMIT DATE: 12/05/17/ER Signed Date of Exam: 12/05/17 CHEST 1 VIEW, AP/PA ONLY INDICATION: Arm pain. TIME OF EXAM: 11:36 a.m. Correlation is made with prior study from 10/10/2016. The heart is enlarged but stable. The lungs are clear. No infiltrate or failure is detected. No effusion or pneumothorax is seen. IMPRESSION: No acute cardiopulmonary process is detected. Dictated by: Dictated on workstation # [id number] Dict: 12/05/17 1147 Trans: 12/05/17 1221 Interpreted by: SURAJ BRITTON MD Electronically signed by: SURAJ BRITTON MD 12/05/17 1221 (ANNIKA GRIMM MD) Departure Impression Primary Impression: Bilateral shoulder pain Qualified Codes: M25.511 - Pain in right shoulder; M25.512 - Pain in left shoulder Disposition: 01 HOME, SELF-CARE Condition: Improved Departure-Patient Inst. Decision time for Depature: 13:19 (ANNIKA GRIMM MD) Referrals: TAMIE MICHELLE MD (PCP/Family) Primary Care Physician Patient Instructions: Shoulder Sprain (DC) Add. Discharge Instructions: All discharge instructions reviewed with patient and/or family. Voiced understanding. Continue home medications as previously prescribed. Follow-up with your doctor for recheck this week. 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 Return for worsening, fever, vomiting, weakness, breathing problems or other concerns as needed. Copy Copies To 1: TAMIE MICHELLE MD, RODNEY K MD Dec 05, 2017 12:11 ANNIKA GRIMM MD Dec 05, 2017 13:20
[2017-12-05] MEDS ORDERED: ACETAMINOPHEN 500 MG TAB (TYLENOL) PO STA (12:22)
[2017-12-05 13:32] VITALS: BP 177/78
--- OUTSIDE RECORDS SUMMARY | 2017-12-06 10:38 | XMS REPORT | Continuity of Care Document ---
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 UNSPECIFIED 12/05/2017 ABDELRAHMAN PANDYA FACC, ALI FACP CCDS Ot I25.10 ATHSCL HEART DISEASE OF [place] CORONARY 12/05/2017 ABDELRAHMAN PANDYA FACC, ALI FACP CCDS Ot K21.9 GASTRO-ESOPHAGEAL REFLUX DISEASE WITHOUT 12/05/2017 ABDELRAHMAN PANDYA FACC, ALI FACP CCDS Ot K27.9 PEPTIC ULC, SITE UNSP, UNSP AC OR CHR 12/05/2017 ABDELRAHMAN PANDYA FACC, ALI FACP CCDS Ot R07.89 OTHER CHEST PAIN 12/05/2017 BAIMAMEYYOHAN L WET PAN OPERATOR Ot D64.9 ANEMIA, UNSPECIFIED 12/05/2017 BAIMA, YOHAN L WET PAN OPERATOR Ot E78.5 HYPERLIPIDEMIA, UNSPECIFIED 12/05/2017 BAIMA YOHAN L WET PAN OPERATOR Ot I25.10 ATHSCL HEART DISEASE OF [place] CORONARY 12/05/2017 BAISCOTT YOHAN L WET PAN OPERATOR Ot R06.09 OTHER FORMS OF DYSPNEA 12/05/2017 MEY ORTEGAHER L WET PAN OPERATOR Ot R60.9 EDEMA, UNSPECIFIED 12/05/2017 TAMIE CASTORENA MD Ot D64.9 ANEMIA, UNSPECIFIED 12/05/2017 TAMIE CASTORENA MD Ot E78.5 HYPERLIPIDEMIA, UNSPECIFIED 12/05/2017 TAMIE CASTORENA MD Ot I25.10 ATHSCL HEART DISEASE OF [place] CORONARY 12/05/2017 TAMIE CASTORENA MD Ot R06.09 OTHER FORMS OF DYSPNEA 12/05/2017 TAMIE CASTORENA MD Ot R60.9 EDEMA, UNSPECIFIED 12/05/2017 ABDELRAHMAN PANDYA FACC, ALI FACP CCDS Ot 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 12/05/2017 ABDELRAHMAN WALL, ALI FACP CCDS Ot Z51.89 ENCOUNTER FOR OTHER SPECIFIED AFTERCARE 12/05/2017 ABDELRAHMAN PANDYA FACC, ALI FACP CCDS Ot F41.1 GENERALIZED ANXIETY DISORDER 12/05/2017 ABDELRAHMAN PANDYA FACC, ALI FACP CCDS Ot I25.10 ATHSCL HEART DISEASE OF [place] CORONARY 12/05/2017 ABDELRAHMAN PANDYA FACC, ALI FACP CCDS Ot R07.89 OTHER CHEST PAIN 12/05/2017 CLAYTON PANDYA, RADHA Parra Ot M25.562 PAIN IN LEFT KNEE 12/05/2017 MIGUEL ANGEL PANDYA, TAMIE Wong Ot K80.20 CALCULUS OF GALLBLADDER W/O CHOLECYSTITI 12/05/2017 TAMIE CASTORENA MD Ot K82.8 OTHER SPECIFIED DISEASES OF [place] 12/05/2017 MIGUEL ANGEL PANDYA, TAMIE Wong Ot M25.551 PAIN IN RIGHT HIP 12/05/2017 TAMIE CASTORENA MD Ot M25.552 PAIN IN LEFT HIP 12/05/2017 Ot V76.12 OTH SCREEN MAMMO-MALIGN NEOPLASM OF [place] 12/05/2017 JUNE TERRELL WET PAN OPERATOR Ot 719.45 JOINT PAIN-PELVIS 12/05/2017 JUNE TERRELL WET PAN OPERATOR Ot 737.30 IDIOPATHIC SCOLIOSIS 12/05/2017 YUNIER SANTANA DO Ot V72.84 EXAM PRE-OPERATIVE NOS 12/05/2017 JUNE TERRELL WET PAN OPERATOR Ot 789.03 ABDOMINAL PAIN, RIGHT LOWER QUADRANT 12/05/2017 MIGUEL ANGEL PANDYA, TAMIE Wong Ot 786.50 CHEST PAIN NOS 12/05/2017 HANNAH PANDYA, RINA Haynes Ot 722.52 LUMB/LUMBOSAC DISC DEGEN 12/05/2017 HANNAH PANDYA, RINA J Ot 756.12 SPONDYLOLISTHESIS 12/05/2017 FERNANDA WRIGHT SALES REPRESENTATIVE CONSULTANT Ot J90 PLEURAL EFFUSION, 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 12/05/2017 FERNANDA WRIGHT SALES REPRESENTATIVE CONSULTANT Ot R71.0 PRECIPITOUS DROP IN HEMATOCRIT 12/05/2017 ABDELRAHMAN PANDYA FACC, ALI FACP CCDS Ot D64.9 ANEMIA, UNSPECIFIED 12/05/2017 ABDELRAHMAN PANDYA FACC, ALI FACP CCDS Ot I25.10 ATHSCL HEART DISEASE OF [place] CORONARY 12/05/2017 ABDELRAHMAN PANDYA FACC, ALI FACP CCDS Ot K21.9 GASTRO-ESOPHAGEAL REFLUX DISEASE WITHOUT 12/05/2017 ABDELRAHMAN PANDYA FAC, ALI FACP CCDS Ot K27.9 PEPTIC ULC, SITE UNSP, UNSP AC OR CHR 12/05/2017 ABDELRAHMAN PANDYA FACFidel, ALI FACP CCDS Ot R07.89 OTHER CHEST PAIN 12/05/2017 BAIMA, YOHAN L WET PAN OPERATOR Ot D64.9 ANEMIA, UNSPECIFIED 12/05/2017 BAIMA, YOHAN L WET PAN OPERATOR Ot E78.5 HYPERLIPIDEMIA, UNSPECIFIED 12/05/2017 BAIMA, YOHAN L WET PAN OPERATOR Ot I25.10 ATHSCL HEART DISEASE OF [place] CORONARY 12/05/2017 BAIMA, YOHAN L WET PAN OPERATOR Ot R06.09 OTHER FORMS OF DYSPNEA 12/05/2017 BAIMA, YOHAN L WET PAN OPERATOR Ot R60.9 EDEMA, UNSPECIFIED 12/05/2017 TAMIE CASTORENA MD Ot D64.9 ANEMIA, UNSPECIFIED 12/05/2017 MIGUEL ANGEL PANDYA, TAMIE Wong Ot E78.5 HYPERLIPIDEMIA, UNSPECIFIED 12/05/2017 TAMIE CASTORENA MD Ot I25.10 ATHSCL HEART DISEASE OF [place] CORONARY 12/05/2017 TAMIE CASTORENA MD Ot R06.09 OTHER FORMS OF DYSPNEA 12/05/2017 TAMIE CASTORENA MD Ot R60.9 EDEMA, UNSPECIFIED 12/05/2017 ABDELRAHMAN PANDYA FACC, ALI FACP CCDS Ot 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 12/05/2017 ABDELRAHMAN PANDYA FACC, JIMMIE FACP CCDS Ot Z51.89 ENCOUNTER FOR OTHER SPECIFIED AFTERCARE 12/05/2017 ABDELRAHMAN PANDYA FACC, ALI FACP CCDS Ot F41.1 GENERALIZED ANXIETY DISORDER 12/05/2017 ABDELRAHMAN PANDYA FACC, ALI FACP CCDS Ot I25.10 ATHSCL HEART DISEASE OF [place] CORONARY 12/05/2017 ABDELRAHMAN PANDYA FACC, ALI FACP CCDS Ot R07.89 OTHER CHEST PAIN 12/05/2017 CLAYTON PANDYA, RADHA Parra Ot M25.562 PAIN IN LEFT KNEE 12/05/2017 TAMIE CASTORENA MD Ot K80.20 CALCULUS OF [place]ALLBL[place] W/O CHOLECYSTITI 12/05/2017 TAMIE CASTORENA MD Ot K82.8 OTHER SPECIFIED DISEASES OF [place] 12/05/2017 MIGUEL ANGEL PANDYA, TAMIE Wong Ot M25.551 PAIN IN RIGHT HIP 12/05/2017 TAMIE CASTORENA MD Ot M25.552 PAIN IN LEFT HIP Procedures Code Description Performed By Performed On 225286U DILATION OF 1 COR ART WITH DRUG-ELUT INT 09/29/2015 [id number] MEASURE OF CARDIAC SAMPL PRESSURE, L H 09/29/2015 [id number] FLUOROSCOPY OF MULT COR ART USING L OSM 09/29/2015 [id number] FLUOROSCOPY OF LEFT HEART USING LOW OSMO 09/29/2015 [id number] FLUOROSCOPY OF THORACIC AORTA USING LOW 09/29/2015 Results Test Result Range Complete blood count (CBC) with automated white blood cell (WBC) differential - 07/06/16 07:47 Blood leukocytes automated count (number/volume) 8.1 10*3/uL 4.3-11.0 Blood erythrocytes automated count (number/volume) 4.69 10*6/uL 4.35-5.85 Venous blood hemoglobin measurement (mass/volume) 13.9 g/dL 11.5-16.0 Blood hematocrit (volume fraction) 42 % 35-52 Automated erythrocyte mean corpuscular volume 90 [foz_us] 80-99 Automated erythrocyte mean corpuscular hemoglobin (mass per erythrocyte) 30 pg 25-34 Automated erythrocyte mean corpuscular hemoglobin concentration measurement ( mass/volume) 33 g/dL 32-36 Automated erythrocyte distribution width ratio 13.2 % 10.0-14.5 Automated blood platelet count (count/volume) 256 10*3/uL 130-400 Automated blood platelet mean volume measurement 12.1 [foz_us] 7.4-10.4 Automated blood neutrophils/100 leukocytes 67 % 42-75 Automated blood lymphocytes/100 leukocytes 21 % 12-44 Blood monocytes/100 leukocytes 8 % 0-12 Automated blood eosinophils/100 leukocytes 2 % 0-10 Automated blood basophils/100 leukocytes 1 % 0-10 Blood neutrophils automated count (number/volume) 5.5 10*3 1.8-7.8 Blood lymphocytes automated count (number/volume) 1.7 10*3 1.0-4.0 Blood monocytes automated count (number/volume) 0.6 10*3 0.0-1.0 Automated eosinophil count 0.2 10*3/uL 0.0-0.3 Automated blood basophil count (count/volume) 0.1 10*3/uL 0.0-0.1 Comprehensive metabolic panel - 07/06/16 07:47 Serum or plasma sodium measurement (moles/volume) 139 mmol/L 135-145 Serum or plasma potassium measurement (moles/volume) 4.7 mmol/L 3.6-5.0 Serum or plasma chloride measurement (moles/volume) 103 mmol/L 98-107 Carbon dioxide 24 mmol/L 21-32 Serum or plasma anion gap determination (moles/volume) 12 mmol/L 5-14 Serum or plasma urea nitrogen measurement (mass/volume) 22 mg/dL 7-18 Serum or plasma creatinine measurement (mass/volume) 1.03 mg/dL 0.60-1.30 Serum or plasma urea nitrogen/creatinine mass ratio 21 NRG Serum or plasma creatinine measurement with calculation of estimated glomerular filtration rate 51 NRG Serum or plasma glucose measurement (mass/volume) 106 mg/dL 70-105 Serum or plasma calcium measurement (mass/volume) 10.2 mg/dL 8.5-10.1 Serum or plasma total bilirubin measurement (mass/volume) 0.6 mg/dL 0.1-1.0 Serum or plasma alkaline phosphatase measurement (enzymatic activity/volume) 58 U/L 40-136 Serum or plasma aspartate aminotransferase measurement (enzymatic activity/ volume) 27 U/L 5-34 Serum or plasma alanine aminotransferase measurement (enzymatic activity/volume ) 14 U/L 0-55 Serum or plasma protein measurement (mass/volume) 7.7 g/dL 6.4-8.2 Serum or plasma albumin measurement (mass/volume) 4.4 g/dL 3.2-4.5 Serum or plasma troponin i.cardiac measurement (mass/volume) - 07/06/16 07:47 Serum or plasma troponin i.cardiac measurement (mass/volume) < ng/ mL <0.30 Complete blood count (CBC) with automated white blood cell (WBC) differential - 10/10/16 20:10 Blood leukocytes automated count (number/volume) 8.1 10*3/uL 4.3-11.0 Blood erythrocytes automated count (number/volume) 4.31 10*6/uL 4.35-5.85 Venous blood hemoglobin measurement (mass/volume) 12.9 g/dL 11.5-16.0 Blood hematocrit (volume fraction) 38 % 35-52 Automated erythrocyte mean corpuscular volume 89 [foz_us] 80-99 Automated erythrocyte mean corpuscular hemoglobin (mass per erythrocyte) 30 pg 25-34 Automated erythrocyte mean corpuscular hemoglobin concentration measurement ( mass/volume) 34 g/dL 32-36 Automated erythrocyte distribution width ratio 12.8 % 10.0-14.5 Automated blood platelet count (count/volume) 195 10*3/uL 130-400 Automated blood platelet mean volume measurement 12.3 [foz_us] 7.4-10.4 Automated blood neutrophils/100 leukocytes 57 % 42-75 Automated blood lymphocytes/100 leukocytes 30 % 12-44 Blood monocytes/100 leukocytes 9 % 0-12 Automated blood eosinophils/100 leukocytes 3 % 0-10 Automated blood basophils/100 leukocytes 2 % 0-10 Blood neutrophils automated count (number/volume) 4.6 10*3 1.8-7.8 Blood lymphocytes automated count (number/volume) 2.4 10*3 1.0-4.0 Blood monocytes automated count (number/volume) 0.7 10*3 0.0-1.0 Automated eosinophil count 0.2 10*3/uL 0.0-0.3 Automated blood basophil count (count/volume) 0.1 10*3/uL 0.0-0.1 Comprehensive metabolic panel - 10/10/16 20:10 Serum or plasma sodium measurement (moles/volume) 137 mmol/L 135-145 Serum or plasma potassium measurement (moles/volume) 4.1 mmol/L 3.6-5.0 Serum or plasma chloride measurement (moles/volume) 102 mmol/L 98-107 Carbon dioxide 23 mmol/L 21-32 Serum or plasma anion gap determination (moles/volume) 12 mmol/L 5-14 Serum or plasma urea nitrogen measurement (mass/volume) 26 mg/dL 7-18 Serum or plasma creatinine measurement (mass/volume) 0.97 mg/dL 0.60-1.30 Serum or plasma urea nitrogen/creatinine mass ratio 27 NRG Serum or plasma creatinine measurement with calculation of estimated glomerular filtration rate 54 NRG Serum or plasma glucose measurement (mass/volume) 108 mg/dL 70-105 Serum or plasma calcium measurement (mass/volume) 9.3 mg/dL 8.5-10.1 Serum or plasma total bilirubin measurement (mass/volume) 0.3 mg/dL 0.1-1.0 Serum or plasma alkaline phosphatase measurement (enzymatic activity/volume) 63 U/L 40-136 Serum or plasma aspartate aminotransferase measurement (enzymatic activity/ volume) 21 U/L 5-34 Serum or plasma alanine aminotransferase measurement (enzymatic activity/volume ) 11 U/L 0-55 Serum or plasma protein measurement (mass/volume) 7.0 g/dL 6.4-8.2 Serum or plasma albumin measurement (mass/volume) 4.1 g/dL 3.2-4.5 Magnesium - 10/10/16 20:10 Magnesium 1.9 mg/dL 1.8-2.4 Serum or plasma troponin i.cardiac measurement (mass/volume) - 10/10/16 20:10 Serum or plasma troponin i.cardiac measurement (mass/volume) < ng/ mL <0.30 Serum or plasma lithium measurement (moles/volume) - 10/10/16 20:10 BNP level 151.7 pg/mL <100.0 Lipase - 10/10/16 20:10 Lipase 20 U/L 8-78 Comprehensive metabolic panel - 05/15/17 08:45 Serum or plasma sodium measurement (moles/volume) 137 mmol/L 135-145 Serum or plasma potassium measurement (moles/volume) 4.2 mmol/L 3.6-5.0 Serum or plasma chloride measurement (moles/volume) 101 mmol/L 98-107 Carbon dioxide 27 mmol/L 21-32 Serum or plasma anion gap determination (moles/volume) 9 mmol/L 5-14 Serum or plasma urea nitrogen measurement (mass/volume) 19 mg/dL 7-18 Serum or plasma creatinine measurement (mass/volume) 1.08 mg/dL 0.60-1.30 Serum or plasma urea nitrogen/creatinine mass ratio 18 NRG Serum or plasma creatinine measurement with calculation of estimated glomerular filtration rate 48 NRG Serum or plasma glucose measurement (mass/volume) 93 mg/dL 70-105 Serum or plasma calcium measurement (mass/volume) 9.4 mg/dL 8.5-10.1 Serum or plasma total bilirubin measurement (mass/volume) 0.8 mg/dL 0.1-1.0 Serum or plasma alkaline phosphatase measurement (enzymatic activity/volume) 47 U/L 40-136 Serum or plasma aspartate aminotransferase measurement (enzymatic activity/ volume) 23 U/L 5-34 Serum or plasma alanine aminotransferase measurement (enzymatic activity/volume ) 13 U/L 0-55 Serum or plasma protein measurement (mass/volume) 6.6 g/dL 6.4-8.2 Serum or plasma albumin measurement (mass/volume) 3.9 g/dL 3.2-4.5 Complete blood count (CBC) with automated white blood cell (WBC) differential - 05/31/17 11:45 Blood leukocytes automated count (number/volume) 7.3 10*3/uL 4.3-11.0 Blood erythrocytes automated count (number/volume) 4.19 10*6/uL 4.35-5.85 Venous blood hemoglobin measurement (mass/volume) 12.6 g/dL 11.5-16.0 Blood hematocrit (volume fraction) 38 % 35-52 Automated erythrocyte mean corpuscular volume 91 [foz_us] 80-99 Automated erythrocyte mean corpuscular hemoglobin (mass per erythrocyte) 30 pg 25-34 Automated erythrocyte mean corpuscular hemoglobin concentration measurement ( mass/volume) 33 g/dL 32-36 Automated erythrocyte distribution width ratio 13.2 % 10.0-14.5 Automated blood platelet count (count/volume) 243 10*3/uL 130-400 Automated blood platelet mean volume measurement 12.2 [foz_us] 7.4-10.4 Automated blood neutrophils/100 leukocytes 61 % 42-75 Automated blood lymphocytes/100 leukocytes 21 % 12-44 Blood monocytes/100 leukocytes 10 % 0-12 Automated blood eosinophils/100 leukocytes 5 % 0-10 Automated blood basophils/100 leukocytes 2 % 0-10 Blood neutrophils automated count (number/volume) 4.5 10*3 1.8-7.8 Blood lymphocytes automated count (number/volume) 1.6 10*3 1.0-4.0 Blood monocytes automated count (number/volume) 0.7 10*3 0.0-1.0 Automated eosinophil count 0.4 10*3/uL 0.0-0.3 Automated blood basophil count (count/volume) 0.1 10*3/uL 0.0-0.1 Methicillin resistant Staphylococcus aureus (MRSA) screening culture - 11:45 MRSA SCREEN RESULT MRSA ISOLATED [facility] Complete blood count (CBC) with automated white blood cell (WBC) differential - 12/05/17 11:22 Blood leukocytes automated count (number/volume) 6.8 10*3/uL 4.3-11.0 Blood erythrocytes automated count (number/volume) 4.08 10*6/uL 4.35-5.85 Venous blood hemoglobin measurement (mass/volume) 12.4 g/dL 11.5-16.0 Blood hematocrit (volume fraction) 37 % 35-52 Automated erythrocyte mean corpuscular volume 91 [foz_us] 80-99 Automated erythrocyte mean corpuscular hemoglobin (mass per erythrocyte) 30 pg 25-34 Automated erythrocyte mean corpuscular hemoglobin concentration measurement ( mass/volume) 34 g/dL 32-36 Automated erythrocyte distribution width ratio 13.2 % 10.0-14.5 Automated blood platelet count (count/volume) 221 10*3/uL 130-400 Automated blood platelet mean volume measurement 12.3 [foz_us] 7.4-10.4 Automated blood neutrophils/100 leukocytes 66 % 42-75 Automated blood lymphocytes/100 leukocytes 21 % 12-44 Blood monocytes/100 leukocytes 9 % 0-12 Automated blood eosinophils/100 leukocytes 3 % 0-10 Automated blood basophils/100 leukocytes 2 % 0-10 Blood neutrophils automated count (number/volume) 4.5 10*3 1.8-7.8 Blood lymphocytes automated count (number/volume) 1.4 10*3 1.0-4.0 Blood monocytes automated count (number/volume) 0.6 10*3 0.0-1.0 Automated eosinophil count 0.2 10*3/uL 0.0-0.3 Automated blood basophil count (count/volume) 0.1 10*3/uL 0.0-0.1 Comprehensive metabolic panel - 12/05/17 11:22 Serum or plasma sodium measurement (moles/volume) 141 mmol/L 135-145 Serum or plasma potassium measurement (moles/volume) 4.4 mmol/L 3.6-5.0 Serum or plasma chloride measurement (moles/volume) 105 mmol/L 98-107 Carbon dioxide 23 mmol/L 21-32 Serum or plasma anion gap determination (moles/volume) 13 mmol/L 5-14 Serum or plasma urea nitrogen measurement (mass/volume) 22 mg/dL 7-18 Serum or plasma creatinine measurement (mass/volume) 1.20 mg/dL 0.60-1.30 Serum or plasma urea nitrogen/creatinine mass ratio 18 NRG Serum or plasma creatinine measurement with calculation of estimated glomerular filtration rate 42 NRG Serum or plasma glucose measurement (mass/volume) 87 mg/dL 70-105 Serum or plasma calcium measurement (mass/volume) 9.7 mg/dL 8.5-10.1 Serum or plasma total bilirubin measurement (mass/volume) 0.7 mg/dL 0.1-1.0 Serum or plasma alkaline phosphatase measurement (enzymatic activity/volume) 48 U/L 40-136 Serum or plasma aspartate aminotransferase measurement (enzymatic activity/ volume) 20 U/L 5-34 Serum or plasma alanine aminotransferase measurement (enzymatic activity/volume ) 12 U/L 0-55 Serum or plasma protein measurement (mass/volume) 6.9 g/dL 6.4-8.2 Serum or plasma albumin measurement (mass/volume) 4.1 g/dL 3.2-4.5 Serum or plasma troponin i.cardiac measurement (mass/volume) - 12/05/17 11:22 Serum or plasma troponin i.cardiac measurement (mass/volume) < ng/ mL <0.30 Encounters ACCT No. Visit Date/Time Discharge Status Pt. Type Provider Facility Loc./Unit Complaint [id number] 12/05/2017 11:05:00 12/05/2017 13:31:00 DIS Emergency ANNIKA GRIMM MD [facility] ER PAINS IN ARMS [id number] 11/30/2017 13:17:00 11/30/2017 23:59:59 CLS Outpatient ABDELRAHMAN PANDYA FACC, JIMMIE GOMES CCDS [facility] CR3 CARDIAC REHAB [id number] 06/07/2017 10:16:00 06/07/2017 17:40:00 DIS Outpatient MAMI CRUZ MD [facility] SDC GALLSTONES; UMBILICAL HERNIA [id number] 05/31/2017 11:27:00 05/31/2017 11:55:00 DIS Outpatient MAMI CRUZ MD [facility] PREOP GALLSTONES; UMBILICAL HERNIA [id number] 05/15/2017 08:36:00 05/15/2017 23:59:59 CLS Outpatient TAMIE CASTORENA MD [facility] RAD ABD/HIP PAIN [id number] 03/20/2017 10:56:00 03/20/2017 23:59:59 CLS Outpatient RADHA ARNOLD MD [facility] CARD LT KNEE PAIN M25.562 [id number] 10/17/2016 11:23:00 10/17/2016 23:59:59 CLS Outpatient ABDELRAHMAN PANDYA FACC, ALI FACP CCDS [facility] CARD CHEST DISCOMFORT,CAD,ANXIETY [id number] 10/10/2016 20:05:00 10/10/2016 21:45:00 DIS Emergency POLI GARVIN DO [facility] ER CP [id number] 07/06/2016 07:19:00 07/06/2016 09:12:00 DIS Emergency KAREN PIERSON MD [facility] ER COLD SYMPTOMS/LEFT JAW PAIN [id number] 01/24/2016 09:00:00 01/24/2016 23:59:59 CLS Preadmit ABDELRAHMAN PANDYA FACC, ALI FACP CCDS [facility] [id number] 01/19/2016 11:50:00 01/23/2016 00:01:00 DIS Outpatient ABDELRAHMAN PANDYA FACC, JIMMIE FACP CCDS [facility] [id number] 12/09/2015 14:46:00 12/09/2015 23:59:59 CLS Outpatient YOHAN ORTEGA [facility] CARD CAD [id number] 12/02/2015 09:30:00 12/02/2015 23:59:59 CLS Outpatient TAMIE CASTORENA MD [facility] LAB [id number] 10/14/2015 08:56:00 10/14/2015 23:59:59 CLS Outpatient ABDELRAHMAN PANDYA FACC, ALI FACP CCDS [facility] LAB CAD, PUD, GERD , ANEMIA [id number] 10/06/2015 12:18:00 10/06/2015 23:59:59 CLS Outpatient FERNANDA WRIGHT APRN [facility] RAD CXR EFFUSION [id number] 03/02/2014 12:59:00 03/02/2014 14:04:00 DIS Outpatient NICK SHAH MD [facility] CARD SACRAL ILLIAC JOINT DSYFUNCTION [id number] 01/27/2014 13:57:00 01/27/2014 23:59:59 CLS Outpatient RINA YOUNG MD [facility] RAD SPONDOLOYSIS [id number] 12/12/2013 10:11:00 12/12/2013 23:59:59 CLS Outpatient TAMIE CASTORENA MD [facility] LAB CP [id number] 09/25/2013 12:56:00 10/24/2013 14:33:00 DIS Outpatient JUNE TERRELL [facility] REHAB BACK PAIN [id number] 07/29/2013 16:25:00 07/29/2013 23:59:59 CLS Outpatient JUNE TERRELL [facility] LAB RLQ PAIN [id number] 07/23/2013 08:18:00 07/23/2013 23:59:59 CLS Outpatient MAX DOYUNIER D [facility] PREOP VOMITING BLOOD [id number] 07/21/2013 12:02:00 07/21/2013 23:59:59 CLS Outpatient JUNE TERRELL [facility] RAD HIP PAIN,BACK PAIN [id number] 09/29/2015 01:40:00 Document Registration [id number] 09/28/2015 23:53:00 Inpatient ABDELRAHMAN PANDYA FACCJIMMIE FACP CCDS [facility] CSD NSTEMI [id number] 09/20/2012 13:36:00 Document Registration [id number] 11/20/2011 08:42:00 Document Registration [id number] 11/17/2011 08:25:00 Document Registration [id number] 07/31/2011 10:40:00 Document Registration [id number] 07/08/2010 12:39:00 Document Registration [id number] 06/06/2010 06:20:00 Document Registration [id number] 06/02/2010 09:18:00 Document Registration 0000 07/05/2017 16:43:06 07/05/2017 23:59:59 [facility] Outpatient Tamie Castorena
== END 2017-12-05 13:31 | disposition home or self-care (01) ==
LOC: EDUNIT# 11:03 → ER 11:05
DX: M25.512 Pain in left shoulder (principal); M25.511 Pain in right shoulder; I25.2 Old myocardial infarction; I10 Essential (primary) hypertension; F32.9 Major depressive disorder, single episode, unspecified; Z87.19 Personal history of other diseases of the digestive system; Z88.0 Allergy status to penicillin; Z79.82 Long term (current) use of aspirin; Z79.02 Long term (current) use of antithrombotics/antiplatelets; Z95.5 Presence of coronary angioplasty implant and graft; Z96.653 Presence of artificial knee joint, bilateral; Z90.89 Acquired absence of other organs
CPT/HCPCS: 36415; 71045; 80053; 84484; 85025; 93005

== ENCOUNTER → 2018-01-24 | Outpatient (CLI) | payer MEDICARE ==
[~2018-01-24] MED LIST changes: +PSEU120T17 PO; -PSEU120T53 PO
--- NOTE | 2018-01-24 18:05 | Diagnostic Imaging Report ---
EXAMINATION: Bilateral shoulders at 03:57p.m. INDICATION: Shoulder pain. FINDINGS: Three views of each shoulder joint were obtained. There are no prior shoulder examinations available for comparison. There is no fracture, dislocation, or acute bony abnormality evident. 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 The soft tissues are unremarkable. IMPRESSION: There is no evidence for an acute bony abnormality. Dictated by: Dictated on workstation # [id number]
== END ==
LOC: RAD 15:25
PROVIDERS: ATTEND Nurse Practitioner Family
DX: M25.512 Pain in left shoulder (principal); M25.511 Pain in right shoulder

== ENCOUNTER → 2018-02-05 | Outpatient (CLI) | payer MEDICARE | LOC: CARD 08:27 | PROVIDERS: ATTEND Internal Medicine Cardiovascular Disease | DX: Q21.1 Atrial septal defect (principal); I08.3 Combined rheumatic disorders of mitral, aortic and tricuspid valves; I25.10 Atherosclerotic heart disease of native coronary artery without angina pectoris; I77.89 Other specified disorders of arteries and arterioles | CPT/HCPCS: 93306 ==

== ENCOUNTER 2018-09-10 15:28 | Emergency (ER) | payer MEDICARE ==
[~2018-09-10] VITALS: Ht 157.5 cm; Wt 62.1 kg
[~2018-09-10 15:28] MED LIST changes: +IBUP-2185 PO; -IBUP200C75 PO
--- OUTSIDE RECORDS SUMMARY | 2018-09-10 15:36 | XMS REPORT | Continuity of Care Document ---
Author Author [facility] Organization [facility] Address Unknown Phone Unavailable Allergies Active Description Code Type Severity Reaction Onset Reported/Identified Relationship to Patient Clinical Status Yes Penicillins [id number] Drug Allergy Unknown N/A 09/29/2015 Medications There is no data. Problems Date Dx Coded Attending Type Code Diagnosis Diagnosed By 11/20/2011 Ot 562.10 DIVERTICULOSIS COLON (W/O MENT OF HEMORR 11/20/2011 Ot V16.0 FAMILY HX-GI MALIGNANCY 11/20/2011 Ot V76.51 SCREEN MAL NEOP-COLON 10/24/2013 JUNE TERRELL ANTIQUE FURNITURE REPAIRER Ot 715.90 OSTEOARTHROS NOS-UNSPEC 10/24/2013 JUNE TERRELL ANTIQUE FURNITURE REPAIRER Ot 724.5 BACKACHE NOS 10/24/2013 JUNE TERRELL ANTIQUE FURNITURE REPAIRER Ot 737.30 IDIOPATHIC SCOLIOSIS 10/24/2013 JUNE TERRELL ANTIQUE FURNITURE REPAIRER Ot 756.12 SPONDYLOLISTHESIS 10/24/2013 JUNE TERRELL ANTIQUE FURNITURE REPAIRER Ot V57.1 PHYSICAL THERAPY NEC 03/02/2014 NICK [...] CCDS Ot I25.10 ATHSCL HEART DISEASE OF [place] CORONARY 10/05/2015 ABDELRAHMAN PANDYA FACC, JIMMIE FACP [...] FACP CCDS Ot Y92.234 OPERATING ROOM OF [facility] 10/06/2015 Ot 786.59 10/06/2015 Ot 272.0 10/06/2015 Ot 461.3 10/06/2015 Ot 682.9 10/06/2015 Ot 719.45 10/06/2015 Ot 733.09 10/06/2015 Ot 786.59 10/06/2015 Ot V76.12 10/06/2015 Ot V76.12 10/06/2015 Ot V72.84 10/06/2015 Ot V76.12 10/06/2015 JUNE TERRELL ANTIQUE FURNITURE REPAIRER Ot 719.45 10/06/2015 JUNE TERRELL ANTIQUE FURNITURE REPAIRER Ot 737.30 10/06/2015 YUNIER SANTANA DO Ot V72.84 10/06/2015 JUNE TERRELL ANTIQUE FURNITURE REPAIRER Ot 789.03 10/06/2015 MIGUEL ANGEL PANDYA, TAMIE Wong Ot 786.50 10/06/2015 HANNAH PANDYA, RINA Haynes Ot 722.52 10/06/2015 HANNAH PANDYA, RINA Haynes Ot 756.12 10/27/2015 FERNANDA WRIGHT ANIMAL CARETAKER SUPERVISOR Ot J90 10/27/2015 FERNANDA WRIGHT APRN Ot R71.0 11/04/2015 ABDELRAHMAN PANDYA FACC, JIMMIE FACP CCDS Ot D64.9 11/04/2015 ABDELRAHMAN PANDYA FACC, JIMMIE FACP CCDS Ot I25.10 11/04/2015 ABDELRAHMAN PANDYA FACC, JIMMIE FACP CCDS Ot K21.9 11/04/2015 ABDELRAHMAN MD FACC, ALI FACP CCDS Ot K27.9 11/04/2015 ABDELRAHMAN PANDYA FACC, ALI FACP CCDS Ot R07.89 11/04/2015 FERNANDA WRIGHT APRN Ot J90 11/04/2015 FERNANDA WRIGHT ANIMAL CARETAKER SUPERVISOR Ot R71.0 11/10/2015 ABDELRAHMAN PANDYA FACC, ALI [...] V72.84 12/02/2015 Ot V76.12 12/02/2015 JUNE TERRELL ANTIQUE FURNITURE REPAIRER Ot 719.45 12/02/2015 JUNE TERRELL ANTIQUE FURNITURE REPAIRER Ot 737.30 12/02/2015 YUNIER SANTANA DO Ot V72.84 12/02/2015 JUNE TERRELL ANTIQUE FURNITURE REPAIRER Ot 789.03 12/02/2015 MIGUEL ANGEL PANDYA, TAMIE [...] FACP CCDS Ot R07.89 12/02/2015 ABDELRAHMAN PANDYA [facility], ALI FACP CCDS Ot I21.3 12/02/2015 ABDELRAHMAN PANDYA FAC, ALI FACP CCDS Ot Z51.89 12/03/2015 ABDELRAHMAN PANDYA [facility], ALI FACP CCDS Ot I21.3 12/03/2015 ABDELRAHMAN PANDYA [facility], ALI FACP CCDS Ot Z51.89 [...] V72.84 12/09/2015 Ot V76.12 12/09/2015 JUNE TERRELL ANTIQUE FURNITURE REPAIRER Ot 719.45 12/09/2015 JUNE TERRELL ANTIQUE FURNITURE REPAIRER Ot 737.30 12/09/2015 YUNIER SANTANA DO Ot V72.84 12/09/2015 JUNE TERRELL ANTIQUE FURNITURE REPAIRER Ot 789.03 12/09/2015 MIGUEL ANGEL PANDYA, TAMIE A Ot 786.50 12/09/2015 HANNAH PANDYA, RINA Haynes Ot 722.52 12/09/2015 HANNAH PANDYA, RINA Haynes Ot 756.12 12/09/2015 FERNANDA WRIGHT ANIMAL CARETAKER SUPERVISOR Ot J90 12/09/2015 FERNANDA WRIGHT ANIMAL CARETAKER SUPERVISOR Ot R71.0 12/09/2015 ABDELRAHMAN PANDYA FACC, ALI [...] ALI FACP CCDS Ot Z51.89 12/09/2015 TAMIE MICHELLE MD Ot D64.9 12/09/2015 TAMIE MICHELLE MD Ot E78.5 12/09/2015 TAMIE MICHELLE MD Ot I25.10 12/09/2015 TAMIE MICHELLE MD Ot R06.09 12/09/2015 TAMIE MICHELLE MD Ot R60.9 12/10/2015 YOHAN ORTEGA L ANTIQUE FURNITURE REPAIRER Ot D64.9 ANEMIA, UNSPECIFIED 12/10/2015 YOHAN ORTEGA L ANTIQUE FURNITURE REPAIRER Ot E78.5 HYPERLIPIDEMIA, UNSPECIFIED 12/10/2015 TRACIMA YOHAN L ANTIQUE FURNITURE REPAIRER Ot I25.10 ATHSCL HEART DISEASE OF [place] CORONARY 12/10/2015 YOHAN ORTEGA L ANTIQUE FURNITURE REPAIRER Ot R06.09 OTHER FORMS OF DYSPNEA 12/10/2015 YOHAN ORTEGA L ANTIQUE FURNITURE REPAIRER Ot R60.9 EDEMA, UNSPECIFIED 12/17/2015 ABDELRAHMAN PANDYA FACC, ALI FACP CCDS Ot 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 12/17/2015 ABDELRAHMAN PANDYA FACC, ALI FACP CCDS Ot Z51.89 ENCOUNTER FOR OTHER SPECIFIED AFTERCARE 12/28/2015 TAMIE MICHELLE MD Ot D64.9 ANEMIA, UNSPECIFIED 12/28/2015 TAMIE MICHELLE MD Ot E78.5 HYPERLIPIDEMIA, UNSPECIFIED 12/28/2015 TAMIE MICHELLE MD Ot I25.10 ATHSCL HEART DISEASE OF [place] CORONARY 12/28/2015 TAMIE MICHELLE MD Ot R06.09 OTHER FORMS OF DYSPNEA 12/28/2015 TAMIE MICHELLE MD Ot R60.9 EDEMA, UNSPECIFIED 12/30/2015 BAIMA, YOHAN L ANTIQUE FURNITURE REPAIRER Ot D64.9 ANEMIA, UNSPECIFIED 12/30/2015 BAIMA, YOHAN L ANTIQUE FURNITURE REPAIRER Ot E78.5 HYPERLIPIDEMIA, UNSPECIFIED 12/30/2015 BAIMA, YOHAN L ANTIQUE FURNITURE REPAIRER Ot I25.10 ATHSCL HEART DISEASE OF [place] CORONARY 12/30/2015 BAIMA, YOHAN L ANTIQUE FURNITURE REPAIRER Ot R06.09 OTHER FORMS OF DYSPNEA 12/30/2015 BAIMA, YOHAN L ANTIQUE FURNITURE REPAIRER Ot R60.9 EDEMA, UNSPECIFIED 01/05/2016 BAIMA, YOHAN L ANTIQUE FURNITURE REPAIRER Ot D64.9 ANEMIA, UNSPECIFIED 01/05/2016 BAIMA, YOHAN L ANTIQUE FURNITURE REPAIRER Ot E78.5 HYPERLIPIDEMIA, UNSPECIFIED 01/05/2016 BAIMA, YOHAN L ANTIQUE FURNITURE REPAIRER Ot I25.10 ATHSCL HEART DISEASE OF [place] CORONARY 01/05/2016 BAIMA, YOHAN L ANTIQUE FURNITURE REPAIRER Ot R06.09 OTHER FORMS OF DYSPNEA 01/05/2016 BAIMA, YOHAN L ANTIQUE FURNITURE REPAIRER Ot R60.9 EDEMA, UNSPECIFIED 01/23/2016 ABDELRAHMAN PANDYA [...] COUGH 07/06/2016 KAREN PIERSON MD Ot Z79.82 SUPERVISOR DOPING (CURRENT) USE OF ASPIRIN 07/06/2016 KAREN PIERSON MD, Ot Z79.899 OTHER ALF (CURRENT) DRUG THERAPY 07/06/2016 KAREN PIERSON MD Ot Z95.5 PRESENCE OF CORONARY ANGIOPLASTY IMPLANT 07/07/2016 KAREN PIERSON MD Ot I10 ESSENTIAL (PRIMARY) HYPERTENSION 07/07/2016 KAREN PIERSON MD Ot J06.9 ACUTE UPPER RESPIRATORY INFECTION, UNSPE 07/07/2016 KAREN PIERSON MD Ot R05 COUGH 07/07/2016 KAREN PIERSON MD Ot Z79.82 ALF (CURRENT) USE OF ASPIRIN 07/07/2016 KAREN PIERSON MD Ot Z79.899 OTHER SUPERVISOR DOPING (CURRENT) DRUG THERAPY 07/07/2016 KAREN PIERSON MD Ot Z95.5 PRESENCE OF CORONARY ANGIOPLASTY IMPLANT 07/07/2016 Ot V76.12 OTH SCREEN MAMMO-MALIGN NEOPLASM OF [place] 07/07/2016 Ot V72.84 EXAM PRE- OPERATIVE NOS 07/07/2016 Ot V76.12 OTH SCREEN MAMMO-MALIGN NEOPLASM OF [place] 07/07/2016 JUNE TERRELL ANTIQUE FURNITURE REPAIRER Ot 719.45 JOINT PAIN-PELVIS 07/07/2016 JUNE TERRELL ANTIQUE FURNITURE REPAIRER Ot 737.30 IDIOPATHIC SCOLIOSIS 07/07/2016 YUNIER SANTANA DO Ot V72.84 EXAM PRE-OPERATIVE NOS 07/07/2016 JUNE TERRELL ANTIQUE FURNITURE REPAIRER Ot 789.03 ABDOMINAL PAIN, RIGHT LOWER QUADRANT 07/07/2016 MIGUEL ANGEL PANDYA, TAMIE Wong Ot 786.50 CHEST PAIN NOS 07/07/2016 HANNAH PANDYA, RINA Haynes Ot 722.52 LUMB/LUMBOSAC DISC DEGEN 07/07/2016 HANNAH PANDYA, RINA Haynes Ot 756.12 SPONDYLOLISTHESIS 07/07/2016 FERNANDA WRIGHT ANIMAL CARETAKER SUPERVISOR Ot J90 PLEURAL EFFUSION, 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 07/07/2016 FERNANDA WRIGHT ANIMAL CARETAKER SUPERVISOR Ot R71.0 PRECIPITOUS DROP IN HEMATOCRIT 07/07/2016 ABDELRAHMAN PANDYA FACC, ALI FACP CCDS Ot D64.9 ANEMIA, UNSPECIFIED 07/07/2016 ABDELRAHMAN PANDYA FACC, ALI FACP CCDS Ot I25.10 ATHSCL HEART DISEASE OF [place] CORONARY 07/07/2016 ABDELRAHMAN PANDYA FACC, ALI FACP CCDS Ot K21.9 GASTRO-ESOPHAGEAL REFLUX DISEASE WITHOUT 07/07/2016 ABDELRAHMAN PANDYA FACC, ALI FACP CCDS Ot K27.9 PEPTIC ULC, SITE UNSP, UNSP AC OR CHR 07/07/2016 ABDELRAHMAN PANDYA FAC, ALI FACP CCDS Ot R07.89 OTHER CHEST PAIN 07/07/2016 YOHAN ORTEGA ANTIQUE FURNITURE REPAIRER Ot D64.9 ANEMIA, UNSPECIFIED 07/07/2016 BAIYOHAN CHAVEZ L ANTIQUE FURNITURE REPAIRER Ot E78.5 HYPERLIPIDEMIA, UNSPECIFIED 07/07/2016 BAIYOHAN CHAVEZ L ANTIQUE FURNITURE REPAIRER Ot I25.10 ATHSCL HEART DISEASE OF [place] CORONARY 07/07/2016 BAIYOHAN CHAVEZ L ANTIQUE FURNITURE REPAIRER Ot R06.09 OTHER FORMS OF DYSPNEA 07/07/2016 BAIMAYOHAN L ANTIQUE FURNITURE REPAIRER Ot R60.9 EDEMA, UNSPECIFIED 07/07/2016 MIGUEL ANGEL PANDYA, TAMIE A Ot D64.9 ANEMIA, UNSPECIFIED 07/07/2016 MIGUEL ANGEL PANDYA, TAMIE A Ot E78.5 HYPERLIPIDEMIA, UNSPECIFIED 07/07/2016 MIGUEL ANGEL PANDYA, TAMIE A Ot I25.10 ATHSCL HEART DISEASE OF [place] CORONARY 07/07/2016 MIGUEL ANGEL PANDYA, TAMIE Wong [...] UNSPECIFIED 10/10/2016 POLI GARVIN DO, Ot Z79.02 SUPERVISOR DOPING (CURRENT) USE OF ANTITHROMBOTI 10/10/2016 POLI GARVIN DO, Ot Z79.82 ALF (CURRENT) USE OF ASPIRIN 10/10/2016 POLI GARVIN DO, Ot Z79.899 OTHER ALF (CURRENT) DRUG THERAPY 10/11/2016 POLI GARVIN DO, Ot I10 ESSENTIAL (PRIMARY) HYPERTENSION 10/11/2016 BHARATHI DO, POLI D Ot I25.2 OLD MYOCARDIAL INFARCTION 10/11/2016 POLI GARVIN DO Ot I51.7 CARDIOMEGALY 10/11/2016 POLI GARVIN DO Ot R07.89 OTHER CHEST PAIN 10/11/2016 POLI GARVIN DO Ot R07.9 CHEST PAIN, UNSPECIFIED 10/11/2016 POLI GARVIN DO Ot Z79.02 ALF (CURRENT) USE OF ANTITHROMBOTI 10/11/2016 BHARATHI YANG POLI Moore Ot Z79.82 ALF (CURRENT) USE OF ASPIRIN 10/11/2016 POLI GARVIN DO Ot Z79.899 OTHER ALF (CURRENT) DRUG THERAPY 10/18/2016 ABDELRAHMAN PANDYA FACC, ALI FACP CCDS Ot F41.1 GENERALIZED ANXIETY DISORDER 10/18/2016 ABDELRAHMAN PANDYA FACC, ALI FACP CCDS Ot I25.10 ATHSCL HEART DISEASE OF [place] CORONARY 10/18/2016 ABDELRAHMAN PANDYA FACFidel, ALI FACP CCDS Ot R07.89 OTHER CHEST PAIN 11/07/2016 ABDELRAHMAN PANDYA FACC, ALI FACP CCDS Ot F41.1 GENERALIZED ANXIETY DISORDER 11/07/2016 ABDELRAHMAN PANDYA FACC, ALI FACP CCDS Ot I25.10 ATHSCL HEART DISEASE OF [place] CORONARY 11/07/2016 ABDELRAHMAN PANDYA [facility], ALI FACP CCDS Ot R07.89 OTHER CHEST PAIN 11/15/2016 ABDELRAHMAN PANDYA FACC, ALI FACP CCDS Ot F41.1 GENERALIZED ANXIETY DISORDER 11/15/2016 ABDELRAHMAN PANDYA FACC, ALI FACP CCDS Ot I25.10 ATHSCL HEART DISEASE OF [place] CORONARY 11/15/2016 ABDELRAHMAN WALL, ALI FACP CCDS Ot R07.89 OTHER CHEST PAIN 03/21/2017 CLAYTON PANDYA, RADHA Parra Ot M25.562 PAIN IN LEFT KNEE 04/10/2017 RADHA ARNOLD MD Ot M25.562 PAIN IN LEFT KNEE 04/23/2017 RADHA ARNOLD MD Ot M25.562 PAIN IN LEFT KNEE 05/16/2017 TAMIE MICHELLE MD Ot K80.20 CALCULUS OF GALLBLADDER W/O CHOLECYSTITI 05/16/2017 TAMIE MICHELLE MD Ot K82.8 OTHER SPECIFIED DISEASES OF GALLBLADDER 05/16/2017 TAMIE MICHELLE MD Ot M25.551 PAIN IN RIGHT HIP 05/16/2017 TAMIE MICHELLE MD Ot M25.552 PAIN IN LEFT HIP 05/23/2017 TAMIE MICHELLE MD Ot K80.20 CALCULUS OF GALLBLADDER W/O CHOLECYSTITI 05/23/2017 TAMIE MICHELLE MD Ot K82.8 OTHER SPECIFIED DISEASES OF GALLBLADDER 05/23/2017 TAMIE MICHELLE MD Ot M25.551 PAIN IN RIGHT HIP 05/23/2017 TAMIE MICHELLE MD Ot M25.552 PAIN IN LEFT HIP 05/31/2017 MAMI CRUZ MD, Ot K42.9 UMBILICAL HERNIA WITHOUT OBSTRUCTION OR 05/31/2017 MAMI CRUZ MD, Ot K80.20 CALCULUS OF GALLBLADDER W/O CHOLECYSTITI 05/31/2017 MAMI CRUZ MD, Ot Z01.812 ENCOUNTER FOR PREPROCEDURAL LABORATORY E 06/07/2017 TAMIE MICHELLE MD Ot K80.20 CALCULUS OF GALLBLADDER W/O CHOLECYSTITI 06/07/2017 TAMIE MICHELLE MD Ot K82.8 OTHER SPECIFIED DISEASES OF GALLBLADDER 06/07/2017 TAMIE MICHELLE MD Ot M25.551 PAIN IN RIGHT HIP 06/07/2017 TAMIE MICHELLE MD Ot M25.552 PAIN IN LEFT HIP 06/07/2017 MAMI CRUZ MD Ot E78.00 PURE HYPERCHOLESTEROLEMIA, UNSPECIFIED 06/07/2017 MAMI CRUZ MD Ot I10 ESSENTIAL (PRIMARY) HYPERTENSION 06/07/2017 MAMI CRUZ MD Ot I25.10 ATHSCL HEART DISEASE OF [place] CORONARY 06/07/2017 MAMI CRUZ MD Ot I25.2 OLD MYOCARDIAL INFARCTION 06/07/2017 MAMI CRUZ MD Ot K21.9 GASTRO-ESOPHAGEAL REFLUX DISEASE WITHOUT 06/07/2017 MAMI CRUZ MD, Ot K42.9 UMBILICAL HERNIA WITHOUT OBSTRUCTION OR 06/07/2017 MAMI CRUZ MD Ot 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 06/07/2017 MAMI CRUZ MD Ot M19.91 PRIMARY OSTEOARTHRITIS, UNSPECIFIED SITE 06/07/2017 MAMI CRUZ MD, Ot Z79.02 SUPERVISOR DOPING (CURRENT) USE OF ANTITHROMBOTI 06/07/2017 MAMI CRUZ MD, Ot Z79.82 ALF (CURRENT) USE OF ASPIRIN 06/07/2017 MAMI CRUZ MD, Ot Z79.899 OTHER ALF (CURRENT) DRUG THERAPY 06/07/2017 MAMI CRUZ MD, Ot Z95.5 PRESENCE OF CORONARY ANGIOPLASTY IMPLANT 06/11/2017 MAMI CRUZ MD Ot E78.00 PURE HYPERCHOLESTEROLEMIA, UNSPECIFIED 06/11/2017 MAMI CRUZ MD Ot I10 ESSENTIAL (PRIMARY) HYPERTENSION 06/11/2017 MAMI CRUZ MD, Ot I25.10 ATHSCL HEART DISEASE OF [place] CORONARY 06/11/2017 MAMI CRUZ MD, Ot I25.2 OLD MYOCARDIAL INFARCTION 06/11/2017 MAMI CRUZ MD, Ot K21.9 GASTRO-ESOPHAGEAL REFLUX DISEASE WITHOUT 06/11/2017 MAMI CRUZ MD, Ot K42.9 UMBILICAL HERNIA WITHOUT OBSTRUCTION OR 06/11/2017 MAMI RCUZ MD, Ot 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 06/11/2017 MAMI CRUZ MD Ot M19.91 PRIMARY OSTEOARTHRITIS, UNSPECIFIED SITE 06/11/2017 MAMI CRUZ MD, Ot Z79.02 ALF (CURRENT) USE OF ANTITHROMBOTI 06/11/2017 MAMI CRUZ MD, Ot Z79.82 ALF (CURRENT) USE OF ASPIRIN 06/11/2017 MAMI CRUZ MD, Ot Z79.899 OTHER ALF (CURRENT) DRUG THERAPY 06/11/2017 MAMI CRUZ MD, Ot Z95.5 PRESENCE OF CORONARY ANGIOPLASTY IMPLANT 06/13/2017 TAMIE MICHELLE MD Ot K80.20 CALCULUS OF GALLBLADDER W/O CHOLECYSTITI 06/13/2017 TAMIE MICHELLE MD Ot K82.8 OTHER SPECIFIED DISEASES OF GALLBLADDER 06/13/2017 TAMIE MICHELLE MD Ot M25.551 PAIN IN RIGHT HIP 06/13/2017 TAMIE MICHELLE MD Ot M25.552 PAIN IN LEFT HIP 08/02/2017 Ot V76.12 OTH SCREEN MAMMO-MALIGN NEOPLASM OF [place] 08/02/2017 JUNE TERRELL Ot 719.45 JOINT PAIN-PELVIS 08/02/2017 TERRELL, JUNE M ANTIQUE FURNITURE REPAIRER Ot 737.30 IDIOPATHIC SCOLIOSIS 08/02/2017 YUNIER SANTANA DO Ot V72.84 EXAM PRE-OPERATIVE NOS 08/02/2017 XANDERJUNE ANTIQUE FURNITURE REPAIRER Ot 789.03 ABDOMINAL PAIN, RIGHT LOWER QUADRANT 08/02/2017 TAMIE MICHELLE MD Ot 786.50 CHEST PAIN NOS 08/02/2017 HANNAH PANDYA, RINA Haynes Ot 722.52 LUMB/LUMBOSAC DISC DEGEN 08/02/2017 RINA YOUNG MD Ot 756.12 SPONDYLOLISTHESIS 08/02/2017 FERNANDA WRIGHT ANIMAL CARETAKER SUPERVISOR Ot J90 PLEURAL EFFUSION, 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 08/02/2017 FERNANDA WRIGHT ANIMAL CARETAKER SUPERVISOR Ot R71.0 PRECIPITOUS DROP IN HEMATOCRIT 08/02/2017 ABDELRAHMAN PANDYA FACC, ALI FACP CCDS Ot D64.9 ANEMIA, UNSPECIFIED 08/02/2017 ABDELRAHMAN PANDYA FACC, ALI FACP CCDS Ot I25.10 ATHSCL HEART DISEASE OF [place] CORONARY 08/02/2017 ABDELRAHMAN PANDYA FACC, ALI FACP CCDS Ot K21.9 GASTRO-ESOPHAGEAL REFLUX DISEASE WITHOUT 08/02/2017 ABDELRAHMAN PANDYA FACC, ALI FACP CCDS Ot K27.9 PEPTIC [facility], SITE UNSP, UNSP AC OR CHR 08/02/2017 ABDELRAHMAN PANDYA FACC, ALI FACP CCDS Ot R07.89 OTHER CHEST PAIN 08/02/2017 BAIMAMEYYOHAN L ANTIQUE FURNITURE REPAIRER Ot D64.9 ANEMIA, UNSPECIFIED 08/02/2017 BAIMA, YOHAN L ANTIQUE FURNITURE REPAIRER Ot E78.5 HYPERLIPIDEMIA, UNSPECIFIED 08/02/2017 BAIMA YOHAN L ANTIQUE FURNITURE REPAIRER Ot I25.10 ATHSCL HEART DISEASE OF [place] CORONARY 08/02/2017 BAIMAMEYYOHAN L ANTIQUE FURNITURE REPAIRER Ot R06.09 OTHER FORMS OF DYSPNEA 08/02/2017 YOHAN ORTEGA L ANTIQUE FURNITURE REPAIRER Ot R60.9 EDEMA, UNSPECIFIED 08/02/2017 TAMIE MICHELLE MD Ot D64.9 ANEMIA, UNSPECIFIED 08/02/2017 TAMIE MICHELLE MD Ot E78.5 HYPERLIPIDEMIA, UNSPECIFIED 08/02/2017 TAMIE MICHELLE MD Ot I25.10 ATHSCL HEART DISEASE OF [place] CORONARY 08/02/2017 TAMIE MICHELLE MD Ot R06.09 OTHER FORMS OF DYSPNEA 08/02/2017 TAMIE MICHELLE MD Ot R60.9 EDEMA, UNSPECIFIED 08/02/2017 ABDELRAHMAN PANDYA [facility], JIMMIE FACP CCDS Ot 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 08/02/2017 ABDELRAHMAN PANDYA FACC, ALI FACP CCDS Ot Z51.89 ENCOUNTER FOR OTHER SPECIFIED AFTERCARE 08/02/2017 ABDELRAHMAN PANDYA FACC, JIMMIE FACP CCDS Ot F41.1 GENERALIZED ANXIETY DISORDER 08/02/2017 ABDELRAHMAN PANDYA FACC, ALI FACP CCDS Ot I25.10 ATHSCL HEART DISEASE OF [place] CORONARY 08/02/2017 ABDELRAHMAN PANDYA FACC, ALI [facility] Ot R07.89 OTHER CHEST PAIN 08/02/2017 CLAYTON PANDYA, RADHA Parra Ot M25.562 PAIN IN LEFT KNEE 08/02/2017 TAMIE MICHELLE MD Ot K80.20 CALCULUS OF GALLBLADDER W/O CHOLECYSTITI 08/02/2017 TAMIE MICHELLE MD Ot K82.8 OTHER SPECIFIED DISEASES OF GALLBLADDER 08/02/2017 TAMIE MICHELLE MD Ot M25.551 PAIN IN RIGHT HIP 08/02/2017 TAMIE MICHELLE MD Ot M25.552 PAIN IN LEFT HIP 09/19/2017 MAMI CRUZ MD Ot E78.00 PURE HYPERCHOLESTEROLEMIA, UNSPECIFIED 09/19/2017 MAMI CRUZ MD, Ot I10 ESSENTIAL (PRIMARY) HYPERTENSION 09/19/2017 MAMI CRUZ MD Ot I25.10 ATHSCL HEART DISEASE OF [place] CORONARY 09/19/2017 MAMI CRUZ MD, Ot I25.2 OLD MYOCARDIAL INFARCTION 09/19/2017 MAMI CRUZ MD Ot K21.9 GASTRO-ESOPHAGEAL REFLUX DISEASE WITHOUT 09/19/2017 MAMI CRUZ MD, Ot K42.9 UMBILICAL HERNIA WITHOUT OBSTRUCTION OR 09/19/2017 MAMI CRUZ MD, Ot 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 09/19/2017 MAMI CRUZ MD, Ot M19.91 PRIMARY OSTEOARTHRITIS, UNSPECIFIED SITE 09/19/2017 MAMI CRUZ MD, Ot Z79.02 SUPERVISOR DOPING (CURRENT) USE OF ANTITHROMBOTI 09/19/2017 MAMI CRUZ MD, Ot Z79.82 ALF (CURRENT) USE OF ASPIRIN 09/19/2017 MAMI CRUZ MD Ot Z79.899 OTHER SUPERVISOR DOPING (CURRENT) DRUG THERAPY 09/19/2017 MAMI CRUZ MD Ot Z95.5 PRESENCE OF CORONARY ANGIOPLASTY IMPLANT 12/05/2017 Ot V76.12 OTH SCREEN MAMMO-MALIGN NEOPLASM OF [place] 12/05/2017 JUNE TERRELL ANTIQUE FURNITURE REPAIRER Ot 719.45 JOINT PAIN-PELVIS 12/05/2017 JUNE TERRELL ANTIQUE FURNITURE REPAIRER Ot 737.30 IDIOPATHIC SCOLIOSIS 12/05/2017 YUNIER SANTANA DO Ot V72.84 EXAM PRE-OPERATIVE NOS 12/05/2017 JUNE TERRELL ANTIQUE FURNITURE REPAIRER Ot 789.03 ABDOMINAL PAIN, RIGHT LOWER QUADRANT 12/05/2017 MIGUEL ANGEL PANDYA, TAMIE Wong Ot 786.50 CHEST PAIN NOS 12/05/2017 HANNAH PANDYA, RINA Haynes Ot 722.52 LUMB/LUMBOSAC DISC DEGEN 12/05/2017 HANNAH PANDYA, RINA Haynes Ot 756.12 SPONDYLOLISTHESIS 12/05/2017 FERNANDA WRIGHT ANIMAL CARETAKER SUPERVISOR Ot J90 PLEURAL EFFUSION, 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 12/05/2017 FERNANDA WRIGHT ANIMAL CARETAKER SUPERVISOR Ot R71.0 PRECIPITOUS DROP IN HEMATOCRIT 12/05/2017 ABDELRAHMAN PANDYA FACC, ALI FACP CCDS Ot D64.9 ANEMIA, UNSPECIFIED 12/05/2017 ABDELRAHMAN PANDYA FACC, ALI FACP CCDS Ot I25.10 ATHSCL HEART DISEASE OF [place] CORONARY 12/05/2017 ABDELRAHMAN PANDYA FACC, ALI FACP CCDS Ot K21.9 GASTRO-ESOPHAGEAL REFLUX DISEASE WITHOUT 12/05/2017 ABDELRAHMAN WALLC, ALI FACP CCDS Ot K27.9 PEPTIC ULC, SITE UNSP, UNSP AC OR CHR 12/05/2017 ABDELRAHMAN WALLC, ALI FACP CCDS Ot R07.89 OTHER CHEST PAIN 12/05/2017 YOHAN ORTEGA ANTIQUE FURNITURE REPAIRER Ot D64.9 ANEMIA, UNSPECIFIED 12/05/2017 YOHAN ORTEGA ANTIQUE FURNITURE REPAIRER Ot E78.5 HYPERLIPIDEMIA, UNSPECIFIED 12/05/2017 YOHAN ORTEGA L ANTIQUE FURNITURE REPAIRER Ot I25.10 ATHSCL HEART DISEASE OF [place] CORONARY 12/05/2017 BAIMA, YOHAN L ANTIQUE FURNITURE REPAIRER Ot R06.09 OTHER FORMS OF DYSPNEA 12/05/2017 YOHAN ORTEGA ANTIQUE FURNITURE REPAIRER Ot R60.9 EDEMA, UNSPECIFIED 12/05/2017 TAMIE MICHELLE MD Ot D64.9 ANEMIA, UNSPECIFIED 12/05/2017 TAMIE MICHELLE MD Ot E78.5 HYPERLIPIDEMIA, UNSPECIFIED 12/05/2017 TAMIE MICHELLE MD Ot I25.10 ATHSCL HEART DISEASE OF [place] CORONARY 12/05/2017 TAMIE MICHELLE MD Ot R06.09 OTHER FORMS OF DYSPNEA 12/05/2017 TAMIE MICHELLE MD Ot R60.9 EDEMA, UNSPECIFIED 12/05/2017 ABDELRAHMAN PANDYA FACC, ALI FACP CCDS Ot 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 12/05/2017 ABDELRAHMAN PANDYA FACC, ALI FACP CCDS Ot Z51.89 ENCOUNTER FOR OTHER SPECIFIED AFTERCARE 12/05/2017 ABDELRAHMAN PANDYA FACC, ALI FACP CCDS Ot F41.1 GENERALIZED ANXIETY DISORDER 12/05/2017 ABDELRAHMAN PANDYA FACC, ALI FACP CCDS Ot I25.10 ATHSCL HEART DISEASE OF [place] CORONARY 12/05/2017 ABDELRAHMAN PANDYA FACC, ALI FACP CCDS Ot R07.89 OTHER CHEST PAIN 12/05/2017 CLAYTON PANDYA, RADHA Parra Ot M25.562 PAIN IN LEFT KNEE 12/05/2017 TAMIE MICHELLE MD Ot K80.20 CALCULUS OF GALLBLADDER W/O CHOLECYSTITI 12/05/2017 TAMIE MICHELLE MD Ot K82.8 OTHER SPECIFIED DISEASES OF [place] 12/05/2017 TAMIE MICHELLE MD Ot M25.551 PAIN IN RIGHT HIP 12/05/2017 TAMIE MICHELLE MD Ot M25.552 PAIN IN LEFT HIP 12/05/2017 ANNIKA GRIMM MD Ot F32.9 MAJOR DEPRESSIVE DISORDER, SINGLE EPISOD 12/05/2017 ANNIKA GRIMM MD Ot I10 ESSENTIAL (PRIMARY) HYPERTENSION 12/05/2017 ANNIKA GRIMM MD Ot I25.2 OLD MYOCARDIAL INFARCTION 12/05/2017 ANNIKA GRIMM MD Ot M25.511 PAIN IN RIGHT SHOULDER 12/05/2017 ANNIKA GRIMM MD Ot M25.512 PAIN IN LEFT SHOULDER 12/05/2017 ANNIKA GRIMM MD Ot Z79.02 ALF (CURRENT) USE OF ANTITHROMBOTI 12/05/2017 ANNIKA GRIMM MD Ot Z79.82 ALF (CURRENT) USE OF ASPIRIN 12/05/2017 ANNIKA GRIMM MD Ot Z87.19 PERSONAL HISTORY OF OTHER DISEASES OF TH 12/05/2017 ANNIKA GRIMM MD Ot Z88.0 ALLERGY STATUS TO PENICILLIN 12/05/2017 ANNIKA GRIMM MD Ot Z90.89 ACQUIRED ABSENCE OF OTHER ORGANS 12/05/2017 ANNIKA GRIMM MD Ot Z95.5 PRESENCE OF CORONARY ANGIOPLASTY IMPLANT 12/05/2017 ANNIKA GRIMM MD Ot Z96.653 PRESENCE OF ARTIFICIAL KNEE JOINT, BILAT 12/05/2017 Ot V76.12 OTH SCREEN MAMMO-MALIGN NEOPLASM OF [place] 12/05/2017 JUNE TERRELL ANTIQUE FURNITURE REPAIRER Ot 719.45 JOINT PAIN-PELVIS 12/05/2017 JUNE TERRELL ANTIQUE FURNITURE REPAIRER Ot 737.30 IDIOPATHIC SCOLIOSIS 12/05/2017 YUNIER SANTANA DO Ot V72.84 EXAM PRE-OPERATIVE NOS 12/05/2017 JUNE TERRELL ANTIQUE FURNITURE REPAIRER Ot 789.03 ABDOMINAL PAIN, RIGHT LOWER QUADRANT 12/05/2017 MIGUEL ANGEL PANDYA, TAMIE Wong Ot 786.50 CHEST PAIN NOS 12/05/2017 HANNAH PANDYA, RINA Haynes Ot 722.52 LUMB/LUMBOSAC DISC DEGEN 12/05/2017 HANNAH PANDYA, RINA Haynes Ot 756.12 SPONDYLOLISTHESIS 12/05/2017 FERNANDA WRIGHT ANIMAL CARETAKER SUPERVISOR Ot J90 PLEURAL EFFUSION, 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 12/05/2017 FERNANDA WRIGHT ANIMAL CARETAKER SUPERVISOR Ot R71.0 PRECIPITOUS DROP IN HEMATOCRIT 12/05/2017 ABDELRAHMAN PANDYA FACC, ALI FACP CCDS Ot D64.9 ANEMIA, UNSPECIFIED 12/05/2017 ABDELRAHMAN PANDYA FACC, ALI FACP CCDS Ot I25.10 ATHSCL HEART DISEASE OF [place] CORONARY 12/05/2017 ABDELRAHMAN PANDYA FACC, ALI FACP CCDS Ot K21.9 GASTRO-ESOPHAGEAL REFLUX DISEASE WITHOUT 12/05/2017 ABDELRAHMAN PANDYA FACC, ALI FACP CCDS Ot K27.9 PEPTIC ULC, SITE UNSP, UNSP AC OR CHR 12/05/2017 ABDELRAHMAN PANDYA FACC, ALI FACP CCDS Ot R07.89 OTHER CHEST PAIN 12/05/2017 BAIMA, YOHAN L ANTIQUE FURNITURE REPAIRER Ot D64.9 ANEMIA, UNSPECIFIED 12/05/2017 BAIMA, YOHAN L ANTIQUE FURNITURE REPAIRER Ot E78.5 HYPERLIPIDEMIA, UNSPECIFIED 12/05/2017 BAIMA, YOHAN L ANTIQUE FURNITURE REPAIRER Ot I25.10 ATHSCL HEART DISEASE OF [place] CORONARY 12/05/2017 BAIMA, YOHAN L ANTIQUE FURNITURE REPAIRER Ot R06.09 OTHER FORMS OF DYSPNEA 12/05/2017 BAIMA, YOHAN L ANTIQUE FURNITURE REPAIRER Ot R60.9 EDEMA, UNSPECIFIED 12/05/2017 TAMIE MICHELLE MD Ot D64.9 ANEMIA, UNSPECIFIED 12/05/2017 TAMIE MICHELLE MD Ot E78.5 HYPERLIPIDEMIA, UNSPECIFIED 12/05/2017 TAMIE MICHELLE MD Ot I25.10 ATHSCL HEART DISEASE OF [place] CORONARY 12/05/2017 TAMIE MICHELLE MD Ot R06.09 OTHER FORMS OF DYSPNEA 12/05/2017 TAMIE MICHELLE MD Ot R60.9 EDEMA, UNSPECIFIED 12/05/2017 ABDELRAHMAN PANDYA FACC, ALI FACP CCDS Ot 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 12/05/2017 ABDELRAHMAN PANDYA FACC, ALI FACP CCDS Ot Z51.89 ENCOUNTER FOR OTHER SPECIFIED AFTERCARE 12/05/2017 ABDELRAHMAN PANDYA FACC, ALI FACP CCDS Ot F41.1 GENERALIZED ANXIETY DISORDER 12/05/2017 ABDELRAHMAN PANDYA FACC, ALI FACP CCDS Ot I25.10 ATHSCL HEART DISEASE OF [place] CORONARY 12/05/2017 ABDELRAHMAN PANDYA FACC, ALI FACP CCDS Ot R07.89 OTHER CHEST PAIN 12/05/2017 CLAYTON PANDYA, RADHA Parra Ot M25.562 PAIN IN LEFT KNEE 12/05/2017 TAMIE MICHELLE MD Ot K80.20 CALCULUS OF [place]ALLBL[place] W/O CHOLECYSTITI 12/05/2017 TAMIE MICHELLE MD Ot K82.8 OTHER SPECIFIED DISEASES OF [place] 12/05/2017 TAMIE MICHELLE MD Ot M25.551 PAIN IN RIGHT HIP 12/05/2017 TAMIE MICHELLE MD Ot M25.552 PAIN IN LEFT HIP 12/05/2017 Ot V76.12 OTH SCREEN MAMMO-MALIGN NEOPLASM OF LONNY 12/05/2017 JUNE TERRELL ANTIQUE FURNITURE REPAIRER Ot 719.45 JOINT PAIN-PELVIS 12/05/2017 JUNE TERRELL ANTIQUE FURNITURE REPAIRER Ot 737.30 IDIOPATHIC SCOLIOSIS 12/05/2017 YUNIER SANTANA DO Ot V72.84 EXAM PRE-OPERATIVE NOS 12/05/2017 JUNE TERRELL ANTIQUE FURNITURE REPAIRER Ot 789.03 ABDOMINAL PAIN, RIGHT LOWER QUADRANT 12/05/2017 MIGUEL ANGEL PANYDA, TAMIE Wong Ot 786.50 CHEST PAIN NOS 12/05/2017 HANNAH PANDYA, RINA Haynes Ot 722.52 LUMB/LUMBOSAC DISC DEGEN 12/05/2017 HANNAH PANDYA, RINA Haynes Ot 756.12 SPONDYLOLISTHESIS 12/05/2017 FERNANDA WRIGHT ANIMAL CARETAKER SUPERVISOR Ot J90 PLEURAL EFFUSION, 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 12/05/2017 FERNANDA WRIGHT ANIMAL CARETAKER SUPERVISOR Ot R71.0 PRECIPITOUS DROP IN HEMATOCRIT 12/05/2017 ABDELRAHMAN PANDYA FACC, ALI FACP CCDS Ot D64.9 ANEMIA, UNSPECIFIED 12/05/2017 ABDELRAHMAN PANDYA FACC, ALI FACP CCDS Ot I25.10 ATHSCL HEART DISEASE OF [place] CORONARY 12/05/2017 ABDELRAHMAN PANDYA FACC, ALI FACP CCDS Ot K21.9 GASTRO-ESOPHAGEAL REFLUX DISEASE WITHOUT 12/05/2017 ABDELRAHMAN PANDYA FACC, ALI FACP CCDS Ot K27.9 PEPTIC ULC, SITE UNSP, UNSP AC OR CHR 12/05/2017 ABDELRAHMAN PANDYA FACC, ALI FACP CCDS Ot R07.89 OTHER CHEST PAIN 12/05/2017 YOHAN ORTEGA L ANTIQUE FURNITURE REPAIRER Ot D64.9 ANEMIA, UNSPECIFIED 12/05/2017 YOHAN ORTEGA L ANTIQUE FURNITURE REPAIRER Ot E78.5 HYPERLIPIDEMIA, UNSPECIFIED 12/05/2017 YOHAN ORTEGA L ANTIQUE FURNITURE REPAIRER Ot I25.10 ATHSCL HEART DISEASE OF [place] CORONARY 12/05/2017 YOHAN ORTEGA L ANTIQUE FURNITURE REPAIRER Ot R06.09 OTHER FORMS OF DYSPNEA 12/05/2017 YOHAN ORTEGA L ANTIQUE FURNITURE REPAIRER Ot R60.9 EDEMA, UNSPECIFIED 12/05/2017 TAMIE MICHELLE MD Ot D64.9 ANEMIA, UNSPECIFIED 12/05/2017 TAMIE MICHELLE MD Ot E78.5 HYPERLIPIDEMIA, UNSPECIFIED 12/05/2017 TAMIE MICHELLE MD Ot I25.10 ATHSCL HEART DISEASE OF [place] CORONARY 12/05/2017 TAMIE MICHELLE MD Ot R06.09 OTHER FORMS OF DYSPNEA 12/05/2017 TAMIE MICHELLE MD Ot R60.9 EDEMA, UNSPECIFIED 12/05/2017 ABDELRAHMAN PANDYA FACC, ALI FACP CCDS Ot 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 12/05/2017 ABDELRAHMAN PANDYA FACC, ALI FACP CCDS Ot Z51.89 ENCOUNTER FOR OTHER SPECIFIED AFTERCARE 12/05/2017 ABDELRAHMAN PANDYA FACC, ALI FACP CCDS Ot F41.1 GENERALIZED ANXIETY DISORDER 12/05/2017 ABDELRAHMAN PANDYA FACFidel, ALI FACP CCDS Ot I25.10 ATHSCL HEART DISEASE OF [place] CORONARY 12/05/2017 ABDELRAHMAN PANDYA FACC, ALI FACP CCDS Ot R07.89 OTHER CHEST PAIN 12/05/2017 CLAYTON PANDYA, RADHA Parra Ot M25.562 PAIN IN LEFT KNEE 12/05/2017 TAMIE MICHELLE MD Ot K80.20 CALCULUS OF GALLBLADDER W/O CHOLECYSTITI 12/05/2017 TAMIE MICHELLE MD Ot K82.8 OTHER SPECIFIED DISEASES OF GALLBLAD[place] 12/05/2017 TAMIE MICHELLE MD Ot M25.551 PAIN IN RIGHT HIP 12/05/2017 TAMIE MICHELLE MD Ot M25.552 PAIN IN LEFT HIP 12/06/2017 Ot V76.12 OTH SCREEN MAMMO-MALIGN NEOPLASM OF [place] 12/06/2017 JUNE TERRELL ANTIQUE FURNITURE REPAIRER Ot 719.45 JOINT PAIN-PELVIS 12/06/2017 JUNE TERRELL ANTIQUE FURNITURE REPAIRER Ot 737.30 IDIOPATHIC SCOLIOSIS 12/06/2017 YUNIER SANTANA DO Ot V72.84 EXAM PRE-OPERATIVE NOS 12/06/2017 JUNE TERRELL ANTIQUE FURNITURE REPAIRER Ot 789.03 ABDOMINAL PAIN, RIGHT LOWER QUADRANT 12/06/2017 TAMIE MICHELLE MD Ot 786.50 CHEST PAIN NOS 12/06/2017 HANNAH PANDYA, RINA Haynes Ot 722.52 LUMB/LUMBOSAC DISC DEGEN 12/06/2017 RINA YOUNG MD Ot 756.12 SPONDYLOLISTHESIS 12/06/2017 FERNANDA WRIGHT ANIMAL CARETAKER SUPERVISOR Ot 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 PLEURAL EFFUSION, 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 12/06/2017 FERNANDA WRIGHT ANIMAL CARETAKER SUPERVISOR Ot R71.0 PRECIPITOUS DROP IN HEMATOCRIT 12/06/2017 ABDELRAHMAN WALLC, ALI FACP CCDS Ot D64.9 ANEMIA, UNSPECIFIED 12/06/2017 ABDELRAHMAN PANDYA FACC, ALI FACP CCDS Ot I25.10 ATHSCL HEART DISEASE OF [place] CORONARY 12/06/2017 ABDELRAHMAN WALLC, ALI FACP CCDS Ot K21.9 GASTRO-ESOPHAGEAL REFLUX DISEASE WITHOUT 12/06/2017 ABDELRAHMAN WALLC, ALI FACP CCDS Ot K27.9 PEPTIC ULC, SITE UNSP, UNSP AC OR CHR 12/06/2017 ABDELRAHMAN WALLC, ALI FACP CCDS Ot R07.89 OTHER CHEST PAIN 12/06/2017 BAIMA YOHAN L ANTIQUE FURNITURE REPAIRER Ot D64.9 ANEMIA, UNSPECIFIED 12/06/2017 BAIMA YOHAN L ANTIQUE FURNITURE REPAIRER Ot E78.5 HYPERLIPIDEMIA, UNSPECIFIED 12/06/2017 BAIMA, YOHAN L ANTIQUE FURNITURE REPAIRER Ot I25.10 ATHSCL HEART DISEASE OF [place] CORONARY 12/06/2017 BAIMA YOHAN L ANTIQUE FURNITURE REPAIRER Ot R06.09 OTHER FORMS OF DYSPNEA 12/06/2017 BAISCOTT YOHAN L ANTIQUE FURNITURE REPAIRER Ot R60.9 EDEMA, UNSPECIFIED 12/06/2017 TAMIE MICHELLE MD Ot D64.9 ANEMIA, UNSPECIFIED 12/06/2017 TAMIE MICHELLE MD Ot E78.5 HYPERLIPIDEMIA, UNSPECIFIED 12/06/2017 TAMIE MICHELLE MD Ot I25.10 ATHSCL HEART DISEASE OF [place] CORONARY 12/06/2017 TAMIE MICHELLE MD Ot R06.09 OTHER FORMS OF DYSPNEA 12/06/2017 TAMIE MICHELLE MD Ot R60.9 EDEMA, UNSPECIFIED 12/06/2017 ABDELRAHMAN PANDYA FACC, ALI FACP CCDS Ot 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 12/06/2017 ABDELRAHMAN PANDYA FACC, ALI FACP CCDS Ot Z51.89 ENCOUNTER FOR OTHER SPECIFIED AFTERCARE 12/06/2017 ABDELRAHMAN PANDYA FACC, ALI FACP CCDS Ot F41.1 GENERALIZED ANXIETY DISORDER 12/06/2017 ABDELRAHMAN PANDYA FACC, ALI FACP CCDS Ot I25.10 ATHSCL HEART DISEASE OF [place] CORONARY 12/06/2017 ABDELRAHMAN PANDYA FAC, ALI FACP CCDS Ot R07.89 OTHER CHEST PAIN 12/06/2017 CLAYTON PANDYA, RADHA Parra Ot M25.562 PAIN IN LEFT KNEE 12/06/2017 TAMIE MICHELLE MD Ot K80.20 CALCULUS OF GALLBLADDER W/O CHOLECYSTITI 12/06/2017 TAMIE MICHELLE MD Ot K82.8 OTHER SPECIFIED DISEASES OF [place] 12/06/2017 TAMIE MICHELLE MD Ot M25.551 PAIN IN RIGHT HIP 12/06/2017 TAMIE MICHELLE MD Ot M25.552 PAIN IN LEFT HIP 12/07/2017 ANNIKA GRIMM MD, Ot F32.9 MAJOR DEPRESSIVE DISORDER, SINGLE EPISOD 12/07/2017 ANNIKA GRIMM MD Ot I10 ESSENTIAL (PRIMARY) HYPERTENSION 12/07/2017 ANNIKA GRIMM MD, Ot I25.2 OLD MYOCARDIAL INFARCTION 12/07/2017 ANNIKA GRIMM MD Ot M25.511 PAIN IN RIGHT SHOULDER 12/07/2017 ANNIKA GRIMM MD Ot M25.512 PAIN IN LEFT SHOULDER 12/07/2017 ANNIKA GRIMM MD Ot Z79.02 SUPERVISOR DOPING (CURRENT) USE OF ANTITHROMBOTI 12/07/2017 ANNIKA GRIMM MD Ot Z79.82 SUPERVISOR DOPING (CURRENT) USE OF ASPIRIN 12/07/2017 ANNIKA GRIMM MD Ot Z87.19 PERSONAL HISTORY OF OTHER DISEASES OF TH 12/07/2017 ANNIKA GRIMM MD Ot Z88.0 ALLERGY STATUS TO PENICILLIN 12/07/2017 ANNIKA GRIMM MD Ot Z90.89 ACQUIRED ABSENCE OF OTHER ORGANS 12/07/2017 ANNIKA GRIMM MD Ot Z95.5 PRESENCE OF CORONARY ANGIOPLASTY IMPLANT 12/07/2017 ANNIKA GRIMM MD, Ot Z96.653 PRESENCE OF ARTIFICIAL KNEE JOINT, BILAT 01/03/2018 ABDELRAHMAN PANDYA FAC, ALI FACP CCDS Ot Z29.8 ENCOUNTER FOR OTHER SPECIFIED PROPHYLACT 01/25/2018 FERNANDA WRIGHT APRN Ot M25.511 PAIN IN RIGHT SHOULDER 01/25/2018 ADRIANA, FERNANDA M ANIMAL CARETAKER SUPERVISOR Ot M25.512 PAIN IN LEFT SHOULDER 02/06/2018 ABDELRAHMAN WALLC, ALI FACP CCDS Ot I08.3 COMB RHEUMATIC DISORD OF [place], AORTIC 02/06/2018 ABDELRAHMAN PANDYA FACC, ALI FACP CCDS Ot I25.10 ATHSCL HEART DISEASE OF [place] CORONARY 02/06/2018 ABDELRAHMAN PANDYA FACC, ALI FACP CCDS Ot I77.89 OTHER SPECIFIED DISORDERS OF ARTERIES AN 02/06/2018 ABDELRAHMAN PANDYA FACC, ALI FACP CCDS Ot Q21.1 ATRIAL SEPTAL DEFECT 02/13/2018 FERNANDA WRIGHT ANIMAL CARETAKER SUPERVISOR Ot M25.511 PAIN IN RIGHT SHOULDER 02/13/2018 FERNANDA WRIGHT ANIMAL CARETAKER SUPERVISOR Ot M25.512 PAIN IN LEFT SHOULDER 02/20/2018 FERNANDA WRIGHT ANIMAL CARETAKER SUPERVISOR Ot M25.511 PAIN IN RIGHT SHOULDER 02/20/2018 FERNANDA WRIGHT ANIMAL CARETAKER SUPERVISOR Ot M25.512 PAIN IN LEFT SHOULDER 02/28/2018 ABDELRAHMAN PANDYA FACC, JIMMIE FACP CCDS Ot I08.3 COMB RHEUMATIC DISORD OF [place], AORTIC 02/28/2018 ABDELRAHMAN PANDYA FACC, ALI FACP CCDS Ot I25.10 ATHSCL HEART DISEASE OF [place] CORONARY 02/28/2018 ABDELRAHMAN PANDYA FACC, ALI FACP CCDS Ot I77.89 OTHER SPECIFIED DISORDERS OF ARTERIES AN 02/28/2018 ABDELRAHMAN WALLC, ALI FACP CCDS Ot Q21.1 ATRIAL SEPTAL DEFECT 03/07/2018 ABDELRAHMAN PANDYA FACC, ALI FACP CCDS Ot I08.3 COMB RHEUMATIC DISORD OF [place], AORTIC 03/07/2018 ABDELRAHMAN PANDYA FACC, ALI FACP CCDS Ot I25.10 ATHSCL HEART DISEASE OF [place] CORONARY 03/07/2018 ABDELRAHMAN WALLC, ALI FACP CCDS Ot I77.89 OTHER SPECIFIED DISORDERS OF ARTERIES AN 03/07/2018 ABDELRAHMAN WALLC, ALI FACP CCDS Ot Q21.1 ATRIAL SEPTAL DEFECT Procedures Code Description Performed By Performed On 540413M DILATION OF 1 COR ART WITH DRUG-ELUT INT 09/29/2015 [id number] MEASURE OF CARDIAC SAMPL PRESSURE, L H 09/29/2015 [id number] FLUOROSCOPY OF MULT COR ART USING L OSM 09/29/2015 [id number] FLUOROSCOPY OF LEFT HEART USING LOW OSMO 09/29/2015 I8143MB FLUOROSCOPY OF THORACIC AORTA USING LOW 09/29/2015 [...] - 11:45 MRSA SCREEN RESULT MRSA ISOLATED [facility] Complete blood count (CBC) with automated white [...] Status Pt. Type Provider Facility Loc./Unit Complaint [id number] 02/05/2018 08:27:00 02/05/2018 23:59:59 CLS Outpatient ABDELRAHMAN PANDYA FACC, ALI FACP CCDS [facility] CARD PRO,MILD MITRAL REGURGITATION,MILD TRICUSPID REGUR [id number] 01/24/2018 15:25:00 01/24/2018 23:59:59 CLS Outpatient FERNANDA WRIGHT APRN [facility] RAD BILATERAL SHOULDER PAIN [id number] 12/31/2017 00:10:00 12/31/2017 23:59:59 CLS Preadmit ABDELRAHMAN PANDYA FACC, JIMMIE GOMES CCDS [facility] [place] [address] CARDIAC REHAB [id number] 12/03/2017 17:00:00 12/30/2017 00:01:00 DIS Outpatient ABDELRAHMAN PANDYA FACC, JIMMIE GOMES CCDS [facility] CARDIAC REHAB [id number] 12/05/2017 11:05:00 12/05/2017 13:31:00 DIS Emergency ANNIKA GRIMM MD [facility] ER PAINS IN ARMS [id number] 06/07/2017 10:16:00 06/07/2017 17:40:00 DIS Out[facility]; UMBILICAL HERNIA [id number] 05/31/2017 11:27:00 05/31/2017 11:55:00 DIS Outpatient MAMI CRUZ MD [facility] PREOP GALLSTONES; UMBILICAL HERNIA [id number] 05/15/2017 08:36:00 05/15/2017 23:59:59 CLS Outpatient TAMIE MICHELLE MD [facility] RAD ABD/HIP PAIN [id number] 03/20/2017 10:56:00 03/20/2017 23:59:59 CLS Outpatient RADHA ARNOLD MD [facility] CARD LT KNEE PAIN M25.562 [id number] 10/17/2016 11:23:00 10/17/2016 23:59:59 CLS Outpatient ABDELRAHMAN PANDYA FACC, ALI FACP CCDS [facility] CARD CHEST DISCOMFORT,CAD,ANXIETY [id number] 10/10/2016 20:05:00 10/10/2016 21:45:00 DIS Emergency POLI GARVIN DO [facility] ER CP [id number] 07/06/2016 07:19:00 07/06/2016 09:12:00 DIS Emergency KAREN PIERSON MD [facility] ER COLD SYMPTOMS/LEFT JAW PAIN [id number] 01/24/2016 09:00:00 01/24/2016 23:59:59 CLS Preadmit ABDELRAHMAN PANDYA FACC, ALI FACP CCDS [facility] CR AC TEVA [id number] 01/19/2016 11:50:00 01/23/2016 00:01:00 DIS Outpatient ABDELRAHMAN PANDYA FACC, ALI FACP CCDS [facility] CR AC NSTEVA [id number] 12/09/2015 14:46:00 12/09/2015 23:59:59 CLS Outpatient YOHAN ORTEGA [facility] CARD CAD [id number] 12/02/2015 09:30:00 12/02/2015 23:59:59 CLS Outpatient TAMIE MICHELLE MD [facility] LAB [id number] 10/14/2015 08:56:00 10/14/2015 23:59:59 CLS Outpatient ABDELRAHMAN PANDYA FACC, ALI FACP CCDS [facility] LAB CAD, PUD, GERD , ANEMIA [id number] 10/06/2015 12:18:00 10/06/2015 23:59:59 CLS Outpatient ADRIANA FERNANDA Miranda ANIMAL CARETAKER SUPERVISOR [facility] RAD CXR EFFUSION [id number] 03/02/2014 12:59:00 03/02/2014 14:04:00 DIS Outpatient NICK SHAH MD [facility] CARD SACRAL ILLIAC JOINT DSYFUNCTION [id number] 01/27/2014 13:57:00 01/27/2014 23:59:59 CLS Outpatient RINA YOUNG MD [facility] RAD SPONDOLOYSIS [id number] 12/12/2013 10:11:00 12/12/2013 23:59:59 CLS Outpatient TAMIE MICHELLE MD [facility] LAB CP [id number] 09/25/2013 12:56:00 10/24/2013 14:33:00 DIS Outpatient JUNE TERRELLP [facility] REHAB BACK PAIN [id number] 07/29/2013 16:25:00 07/29/2013 23:59:59 CLS Outpatient JUNE TERRELL ANTIQUE FURNITURE REPAIRER [facility] LAB RLQ PAIN [id number] 07/23/2013 08:18:00 07/23/2013 23:59:59 CLS Outpatient YUNIER SANTANA DO [facility] PREOP VOMITING BLOOD [id number] 07/21/2013 12:02:00 07/21/2013 23:59:59 CLS Outpatient JUNE TERRELL ANTIQUE FURNITURE REPAIRER [facility] RAD HIP PAIN,BACK PAIN [id number] 09/10/2018 15:30:00 ACT Emergency JEREMY PANDYA, ESTRADA Haynes [facility] ER CHEST PAIN [id number] 09/29/2015 01:40:00 Document Registration [id number] 09/28/2015 23:53:00 Inpatient ABDELRAHMAN PANDYA FACC, JIMMIE GOMES CCDS [facility] CSD NSTEMI [id number] 09/20/2012 13:36:00 Document Registration [id number] 11/20/2011 08:42:00 Document Registration [id number] 11/17/2011 08:25:00 Document Registration [id number] 07/31/2011 10:40:00 Document Registration [id number] 07/08/2010 12:39:00 Document Registration [id number] 06/06/2010 06:20:00 Document Registration [id number] 06/02/2010 09:18:00 Document Registration 0000 07/05/2017 16:43:06 07/05/2017 23:59:59 [facility] Tamie Harris
[2018-09-10 15:50] LABS: BASOPHILS # (AUTO) 0.1 10^3/uL (0.0-0.1); BASOPHILS % (AUTO) 1 % (0-10); EOSINOPHILS # (AUTO) 0.2 10^3/uL (0.0-0.3); EOSINOPHILS % (AUTO) 3 % (0-10); HEMATOCRIT 41 % (35-52); HEMOGLOBIN 13.1 G/DL (11.5-16.0); LYMPHOCYTES # (AUTO) 2.1 X 10^3 (1.0-4.0); LYMPHOCYTES % (AUTO) 26 % (12-44); MEAN CORPUSCULAR HEMOGLOBIN 29 PG (25-34); MEAN CORPUSCULAR HGB CONC 32 G/DL (32-36); MEAN CORPUSCULAR VOLUME 91 FL (80-99); MEAN PLATELET VOLUME 12.4 FL (7.4-10.4); MONOCYTES # (AUTO) 0.6 X 10^3 (0.0-1.0); MONOCYTES % (AUTO) 8 % (0-12); NEUTROPHILS # (AUTO) 5.2 X 10^3 (1.8-7.8); NEUTROPHILS % (AUTO) 63 % (42-75); PLATELET COUNT 235 10^3/uL (130-400); RED CELL DISTRIBUTION WIDTH 13.3 % (10.0-14.5); WHITE BLOOD COUNT 8.2 10^3/uL (4.3-11.0)
[2018-09-10] MEDS ORDERED: ASPIRIN 81 MG CHEW (CHILDREN'S ASA) PO ONE (16:00)
[2018-09-10 16:03] LABS: PROTHROMBIN TIME PATIENT 12.9 SEC (12.2-14.7)
[2018-09-10 16:05] LABS: ALANINE AMINOTRANSFERASE 11 U/L (0-55); ALBUMIN 4.4 GM/DL (3.2-4.5); ALKALINE PHOSPHATASE 56 U/L (40-136); BILIRUBIN,TOTAL 0.4 MG/DL (0.1-1.0); BUN/CREATININE RATIO 15; CALCIUM 9.8 MG/DL (8.5-10.1); CARBON DIOXIDE 25 MMOL/L (21-32); CHLORIDE 103 MMOL/L (98-107); CREATININE SERUM 1.27 MG/DL (0.60-1.30); GFR ESTIMATED 40; GLUCOSE 110 MG/DL (70-105); MAGNESIUM 2.1 MG/DL (1.8-2.4); POTASSIUM 3.8 MMOL/L (3.6-5.0); SODIUM 140 MMOL/L (135-145); TOTAL PROTEIN 7.9 GM/DL (6.4-8.2)
[2018-09-10 16:12] LABS: MYOGLOBIN SERUM 78.1 NG/ML (10.0-92.0)
--- NOTE | 2018-09-10 16:27 | Diagnostic Imaging Report ---
INDICATION: Chest pain. TIME OF EXAM: 04:17 p.m. Correlation is made with prior chest from 12/05/2017. FINDINGS: The heart is enlarged but stable. The lungs are clear. No infiltrate or failure is detected. No effusion or pneumothorax is seen. IMPRESSION: Stable cardiomegaly. No acute feature is detected. Dictated by: Dictated on workstation # [id number]
[2018-09-10] MEDS ORDERED: amLODIPine 5 MG (NORVASC) TAB PO STA (17:06)
[2018-09-10] MEDS ORDERED: ACHD5005 PO (18:19)
--- NOTE | 2018-09-10 18:19 | ED Chest Pain ---
General Chief Complaint: Chest Pain Stated Complaint: CHEST PAIN Nursing Triage Note: PT PRESENTS TO ER WITH COMPLAINT OF CHEST PAIN THAT STARTED THIS MORNING AROUND 4AM. Nursing Sepsis Screen: No Definite Risk Source: patient Exam Limitations: no limitations History of Present Illness Date Seen by Provider: Sep 10, 2018 Time Seen by Provider: 15:30 Initial Comments Patient presents to ER by private conveyance with some chest pain that woke her up from sleep last night she took some aspirin and Tylenol and it allowed her to go back to sleep. She says is been nagging at her all day she is concerned because of her history of heart disease that it might be related to her heart. She sees Dr. Reyes usually. She had no shortness of breath, cough, sweats, nausea. Her pain is reproducible when she moves her shoulder. It does not radiate anywhere just stays in her left shoulder. She does not take NSAIDs. She does have some Voltaren gel but she's not used it. Allergies and Home Medications Allergies Coded Allergies: Penicillins (Unverified Allergy, Unknown, 09/29/15) Home Medications Alprazolam 0.5 Mg Tablet, 0.5 MG PO HS, (Reported) Aspirin 81 Mg Tablet.dr, 81 MG PO DAILY, (Reported) Clopidogrel Bisulfate 75 Mg Tablet, 75 MG PO DAILY, (Reported) Hydrocodone Bit/Acetaminophen 1 Each Tablet, 1-2 EACH PO Q4H Prescribed by: MAMI CRUZ on 06/07/17 1459 Levomefolate/B6/B12/Algal Oil 1 Each Capsule, 1 EACH PO DAILY, (Reported) Metoprolol Succinate 25 Mg Tab.er.24h, 25 MG PO DAILY, (Reported) Multivitamin with Minerals 1 Each Tablet, 1 EACH PO DAILY, (Reported) Pantoprazole Sodium 40 Mg Tablet.dr, 40 MG PO DAILY, (Reported) Simvastatin 10 Mg Tablet, 10 MG PO HS, (Reported) Patient Home Medication List Home Medication List Reviewed: Yes Review of Systems Review of Systems Constitutional: No chills, No diaphoresis EENTM: No Blurred Vision, No Double Vision Respiratory: Denies Cough, Denies Shortness of Air Cardiovascular: See HPI, Chest Pain; Denies Irregular Heart Rate, Denies Lightheadedness Gastrointestinal: Denies Constipated, Denies Diarrhea Genitourinary: Denies Discharge, Denies Drainage Musculoskeletal: No back pain; joint pain Past Uttkebt-Fvufgj-Dgwrpb Hx Patient Social History Alcohol Use: Denies Use Recreational Drug Use: No Smoking Status: Never a Smoker 2nd Hand Smoke Exposure: No Recent Foreign Travel: No Contact w/Someone Who Travel: No Recent Infectious Disease Expo: No Recent Hopitalizations: No Immunizations Up To Date Date of Pneumonia Vaccine: Sep 29, 2013 Date of Influenza Vaccine: May 27, 2017 Seasonal Allergies Seasonal Allergies: No Past Medical History Surgeries: Yes (STENTS X 2 (09/28/15), bilat TKR) Adenoidectomy, Coronary Stent, Ear Surgery, Eye Surgery, Tonsillectomy Respiratory: No Cardiac: Yes (2 STENTS) Heart Attack, Hypertension Neurological: No Gastrointestinal: Yes Abdominal Hernia, Ulcer, Gall Bladder Disease Musculoskeletal: Yes Arthritis Endocrine: No Cataract 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, Hearing Aide Right, Deaf Cancer: No Psychosocial: Yes Depression Integumentary: No Blood Disorders: No Family Medical History Cancer, Hypertension Physical Exam Vital Signs Vital Signs - First Documented 09/10/18 15:31 Temp 97.0 Pulse 81 Resp 20 B/P (MAP) 138/85 (102) O2 Delivery Room Air Capillary Refill : Less Than 3 Seconds Height, Weight, BMI Height: 5'2.00" Weight: 137lbs. 0.0oz. 62.878992pa; 24.7 BMI Method:Stated General Appearance: No Apparent Distress, WD/WN HEENT: PERRL/EOMI, Pharynx Normal, Moist Mucous Membranes Neck: Full Range of Motion, Normal Inspection, Non Tender, Supple Respiratory: No Chest Non Tender; Lungs Clear, Normal Breath Sounds, No Accessory Muscle Use, No Respiratory Distress, Other (left upper chest and left shoulder are tender to palpation and movement. No limitation of range of motion. ) Cardiovascular: Regular Rate, Rhythm, No Edema, Normal Peripheral Pulses Gastrointestinal: Normal Bowel Sounds, Non Tender, Soft Extremity: Normal Capillary Refill, Normal Inspection, Other (left shoulder has no crepitus but tenderness to movement or palpation.) Neurologic/Psychiatric: Alert, Oriented x3 Progress/Results/Core Measures Results/Orders Lab Results Laboratory Tests Test 09/10/18 15:42 09/10/18 17:26 Range/Units White Blood Count 8.2 4.3-11.0 10^3/uL Red Blood Count 4.50 4.35-5.85 10^6/uL Hemoglobin 13.1 11.5-16.0 G/DL Hematocrit 41 35-52 % Mean Corpuscular Volume 91 80-99 FL Mean Corpuscular Hemoglobin 29 25-34 PG Mean Corpuscular Hemoglobin Concent 32 32-36 G/DL Red Cell Distribution Width 13.3 10.0-14.5 % Platelet Count 235 130-400 10^3/uL Mean Platelet Volume 12.4 H 7.4-10.4 FL Neutrophils (%) (Auto) 63 42-75 % Lymphocytes (%) (Auto) 26 12-44 % Monocytes (%) (Auto) 8 0-12 % Eosinophils (%) (Auto) 3 0-10 % Basophils (%) (Auto) 1 0-10 % Neutrophils # (Auto) 5.2 1.8-7.8 X 10^3 Lymphocytes # (Auto) 2.1 1.0-4.0 X 10^3 Monocytes # (Auto) 0.6 0.0-1.0 X 10^3 Eosinophils # (Auto) 0.2 0.0-0.3 10^3/uL Basophils # (Auto) 0.1 0.0-0.1 10^3/uL Prothrombin Time 12.9 12.2-14.7 SEC INR Comment 1.0 0.8-1.4 Activated Partial Thromboplast Time 27 24-35 SEC Sodium Level 140 135-145 MMOL/L Potassium Level 3.8 3.6-5.0 MMOL/L Chloride Level 103 98-107 MMOL/L Carbon Dioxide Level 25 21-32 MMOL/L Anion Gap 12 5-14 MMOL/L Blood Urea Nitrogen 19 H 7-18 MG/DL Creatinine 1.27 0.60-1.30 MG/DL Estimat Glomerular Filtration Rate 40 BUN/Creatinine Ratio 15 Glucose Level 110 H 70-105 MG/DL Calcium Level 9.8 8.5-10.1 MG/DL Corrected Calcium 9.5 8.5-10.1 MG/DL Magnesium Level 2.1 1.8-2.4 MG/DL Total Bilirubin 0.4 0.1-1.0 MG/DL Aspartate Amino Transf (AST/SGOT) 24 5-34 U/L Alanine Aminotransferase (ALT/SGPT) 11 0-55 U/L Alkaline Phosphatase 56 40-136 U/L Myoglobin 78.1 10.0-92.0 NG/ML Troponin I < 0.028 < 0.028 <0.028 NG/ML Total Protein 7.9 6.4-8.2 GM/DL Albumin 4.4 3.2-4.5 GM/DL My Orders Orders - ESTRADA LUNA Aspirin Chewable Tablet (Baby Aspirin Ch (09/10/18 16:00) Troponin I (09/10/18 17:30) Amlodipine Tablet (Norvasc Tablet) (09/10/18 17:06) Medications Given in ED Current Medications Medications Dose Ordered Sig/Marshall Route Start Time Stop Time Status Last Admin Dose Admin Aspirin 324 mg ONCE ONCE PO 09/10/18 16:00 09/10/18 16:01 DC 09/10/18 16:25 324 MG Vital Signs/I&O 09/10/18 15:31 Temp 97.0 Pulse 81 Resp 20 B/P (MAP) 138/85 (102) O2 Delivery Room Air Blood Pressure Mean: 102 Progress Progress Note : Time: 18:15 Progress Note Appears to be more osteoarthritic or musculoskeletal in origin. She was on Plavix but was taken off. We went ahead and did a EKG and troponin and delta troponin all of which were normal. Her going to allow her to follow up with her felting machine operator tomorrow at her prescheduled appointment. Were going to encourage her to use her Voltaren gel, Tylenol, heat and we will provide her with some hydrocodone as needed. Initial ECG Impression Date: Sep 10, 2018 Initial ECG Impression Time: 15:34 Initial ECG Rate: 73 Initial ECG Rhythm: Normal Sinus Initial ECG Intervals: Normal Initial ECG Impression: Normal, Nonspecific Changes Comment No ST elevation or depression. Diagnostic Imaging Diagonstic Imaging: Xray Plain Films/CT/US/NM/MRI: chest (1v) Comments [facility] [place] NAME: ZENOBIA SR [facility] REC#: [id number] PT STATUS: REG ER : 1930 PHYSICIAN: BENITO HUIZAR [employer] HOUSE WORKER ADMIT DATE: 09/10/18/ER Draft Date of Exam:09/10/18 CHEST 1 VIEW, AP/PA ONLY INDICATION: Chest pain. TIME OF EXAM: 04:17 p.m. Correlation is made with prior chest from 12/05/2017. FINDINGS: The heart is enlarged but stable. The lungs are clear. No infiltrate or failure is detected. No effusion or pneumothorax is seen. IMPRESSION: Stable cardiomegaly. No acute feature is detected. Dictated on workstation # [id number] Dict: 09/10/18 1624 Trans: 09/10/18 1627 [id number] Interpreted by: SURAJ BRITTON MD Electronically signed by: Reviewed: Reviewed by Me Departure Impression Primary Impression: Left anterior shoulder pain Disposition: HOME, SELF-CARE Condition: Stable Departure-Patient Inst. Decision time for Depature: 18:17 Referrals: TAMIE MICHELLE MD (PCP/Family) Primary Care Physician JIMMIE PITT MD [facility] [place] Patient Instructions: Chest Pain That Is Not Caused by the Heart (DC) Add. Discharge Instructions: Use your Voltaren gel as described twice a day for the next week or 2. Use heat as well as Tylenol 1000 mg every 8 hours as needed for your pain in her shoulder and chest. If your symptoms worsen you can return to the ER for further evaluation otherwise plan to keep your scheduled appointment tomorrow with Dr. Pitt, cardiology. If your pain is uncontrolled then you can use one half to one tablet of hydrocodone every 6 hours as needed for pain. Hydrocodone will cause drowsiness as well as constipation so should be combined with Dulcolax, MiraLAX or Colace as well as you should not drive or drink alcohol with it. All discharge instructions reviewed with patient and/or family. Voiced understanding. Scripts Hydrocodone Bit/Acetaminophen (Hydrocodone/Acetaminophen 5/325mg Tablet) 1 Tab Tab 1 EACH PO Q4-6HR PRN for PAIN-MODERATE MDD 10 for 14 Days, #10 TAB Prov: ESTRADA LUNA 09/10/18 Copy Copies To 1: JIMMIE PITT MD [facility] [place] ESTRADA LUNA Sep 10, 2018 18:19
[2018-09-10 18:30] VITALS: BP 174/83
== END 2018-09-10 18:30 | disposition home or self-care (01) ==
LOC: EDUNIT# 15:28 → ER 15:30
DX: M25.512 Pain in left shoulder (principal); I25.2 Old myocardial infarction; I10 Essential (primary) hypertension; F32.9 Major depressive disorder, single episode, unspecified; Z87.19 Personal history of other diseases of the digestive system; Z88.0 Allergy status to penicillin; Z82.49 Family history of ischemic heart disease and other diseases of the circulatory system; Z79.82 Long term (current) use of aspirin; Z79.02 Long term (current) use of antithrombotics/antiplatelets; Z95.5 Presence of coronary angioplasty implant and graft; Z98.890 Other specified postprocedural states; Z90.89 Acquired absence of other organs; Z96.653 Presence of artificial knee joint, bilateral
CPT/HCPCS: 36415; 71045; 80053; 83735; 83874; 84484; 85025; 85610; 85730; 93005; 93041